=== PATIENT | male | born 1940 | race Caucasian/White ===

== ENCOUNTER 2016-09-17 18:30 | Inpatient (IN) | payer OTHER ==
[~2016-09-17] VITALS: Ht 172.7 cm; Wt 72.4 kg
[~2016-09-17 18:30] MED LIST: ACT/30 PO; ATOR-24 PO; CHOL1000 PO; CLR10 PO; GABA-112 PO; GLCSR5 PO; METO50TA16 PO; MULT-506 PO; NTRGSL/4 UT; PRLSR20 PO; SITA50TA3 PO
[2016-09-17 19:58] LABS: BUN/CREATININE RATIO 10.3 (10-20); CALCIUM 8.1 mg/dl (8.5-10.1); CREATININE 1.5 mg/dl (0.60-1.40); POTASSIUM 4.1 mmol/L (3.5-5.1)
--- NOTE | 2016-09-17 20:08 | DIAGNOSTIC IMAGING REPORT ---
CHEST 2 VIEWS ROUTINE CLINICAL HISTORY: Fever. Patient on chemotherapy. COMPARISON STUDY: 04/30/2016 FINDINGS: The heart is normal in size. There is no lobar consolidation. There is a left basilar pleural-parenchymal scarring. There is a 12 mm left midlung zone nodule versus summation. A follow-up study to include shallow PA obliques is recommended. Several thoracic compression deformities are visualized IMPRESSION: 1. Stable left basilar pleural and parenchymal scarring 2. No evidence of acute parenchymal consolidation 3. 12 mm left midlung zone nodule versus summation Electronically signed by: Avinash Irby M.D. 09/17/2016 8:07 PM Dictated Date/Time: 09/17/2016 8:05 PM
[2016-09-17] MEDS ORDERED: GLCSR5 PO (20:42)
[2016-09-17] MEDS ORDERED: GLC500 PO (20:42)
[2016-09-17] MEDS ORDERED: MAGN1TAB41 PO (20:42)
[2016-09-17] MEDS ORDERED: ZVR/400 PO (20:42)
[2016-09-17] MEDS ORDERED: LEVO-17 PO (20:42)
[2016-09-17] MEDS ORDERED: MGCS/ PO (20:42)
[2016-09-17] MEDS ORDERED: ATOR-26 PO (20:42)
[2016-09-17] MEDS ORDERED: ALLO100T PO (20:42)
[2016-09-17] MEDS ORDERED: LISI-461 PO (20:42)
[2016-09-17] MEDS ORDERED: DIPH-437 PO (20:42)
[2016-09-17] MEDS ORDERED: ACET325T95 PO (20:42)
[2016-09-17 21:04] LABS: HEMATOCRIT 26.1 % (42-52); MEAN CELL VOLUME 92.9 fL (80-100); MEAN CORPUSCULAR HEMOGLOBIN 31.3 pg (25-34); MEAN CORPUSCULAR HGB CONC 33.7 g/dl (32-36); MEAN PLATELET VOLUME 10.4 fL (7.4-10.4); PLATELET COUNT 22 K/uL (130-400); RED BLOOD COUNT 2.81 M/uL (4.7-6.1); WHITE BLOOD COUNT 1.01 K/uL (4.8-10.8)
[2016-09-17 21:10] LABS: COMPLETE YES; EOS % 8.9 %; LYMPH % 79.2 %; NEUT % 7.9 %
--- NOTE | 2016-09-17 21:52 | EMERGENCY ROOM VISIT NOTE ---
History Report prepared by Bridgette: Amleia Davies Under the Supervision of: Dr. Yaima Cardona M.D. First contact with patient: 18:53 Chief Complaint: FEVER Stated Complaint: FEVER OVER 100, ON CHEMO History of Present Illness The patient is a 75 year old male who presents to the Emergency Room with complaints of a persistent low-grade fever today. The patient's temperature was 100.2 at home. The patient was diagnosed with lymphoma in early August and [facility]. The patient was told by her doctor, Dr. Medellin, to come to the emergency room if his temperature is over 100. Currently, the patient complains of feeling generally unwell but has no focal complaints. Source of History: patient Onset: today Position: other (global) Symptom Intensity: tmax 100.2 Timing: other (persistent) Review of Systems See HPI for pertinent positives & negatives. A total of 10 systems reviewed and were otherwise negative. Past Medical & Surgical Medical Problems: (1) Benign hypertension (2) Coronary artery disease (3) Gastroesophageal reflux disease (4) Hyperlipidemia (5) Lymphoma (6) PTCA with stenting (7) Type II Diabetes Family History Patient reports no known family medical history. Social History Smoking Status: Former Smoker Marital Status: Housing Status: lives with family Occupation Status: employed Current/Historical Medications Scheduled Acetaminophen/Diphenhydramine (Tylenol Pm), 1 TAB PO HS Acyclovir (Acyclovir), 400 MG PO BID Allopurinol (Zyloprim), 100 MG PO DAILY Atorvastatin (Lipitor), 80 MG PO DAILY Cholecalciferol (Vitamin D3), 1,000 UNIT PO DAILY Gabapentin (Neurontin), 200 MG PO BID Glipizide (Glipizide Xl), 10 MG PO BID Levofloxacin (Levaquin), 250 MG PO DAILY Lisinopril (Zestril), 10 MG PO DAILY Loratadine (Claritin), 10 MG PO DAILY Maalox/Diphen/Visc. Michael/Glyc (Magic Swizzle), 1-2 TSP PO TID Magnesium Oxide (Magnesium), 400 MG PO DAILY Metformin HCl (Metformin HCl), 500 MG PO BIDM Metoprolol Tartrate (Lopressor) (Lopressor), 25 MG PO BID Multivitamin (Multivitamin), 1 TAB PO DAILY Nitroglycerin (Nitrostat), 0.4 MG UT PRN Omeprazole (Prilosec), 20 MG PO DAILY Pioglitazone Hcl (Actos), 30 MG PO DAILY Sitagliptin (Januvia), 50 MG PO DAILY Scheduled PRN Acetaminophen (Tylenol), 650 MG PO Q6 PRN for Pain or Fever Allergies Coded Allergies: No Known Allergies (Verified , 09/17/16) Physical Exam Vital Signs Date Time Temp Pulse Resp B/P Pulse Ox O2 Delivery O2 Flow Rate FiO2 09/17/16 20:11 37.2 103 18 119/78 97 Room Air 09/17/16 18:42 37.0 98 18 136/63 95 Room Air Physical Exam CONSTITUTIONAL: In no distress. Nontoxic. HEENT: No icterus, moist mucous membranes NECK: No meningismus, trachea is midline. CARDIOVASCULAR: Regular rate, normal perfusion RESPIRATORY: Unlabored breathing. Clear to auscultation. GASTROINTESTINAL: Non-tender GENITOURINARY: No flank tenderness MUSCULOSKELETAL: Full range of motion NEUROLOGIC: No acute gross focal deficits. PSYCHIATRIC: Normal affect SKIN: Normal for ethnicity. Medical Decision & Procedures ER Provider Diagnostic Interpretation: Radiology results as stated below per my review and radiologist interpretation. CHEST 2 VIEWS ROUTINE CLINICAL HISTORY: Fever. Patient on chemotherapy. COMPARISON STUDY: 04/30/2016 FINDINGS: The heart is normal in size. There is no lobar consolidation. There is a left basilar pleural-parenchymal scarring. There is a 12 mm left midlung zone nodule versus summation. A follow-up study to include shallow PA obliques is recommended. Several thoracic compression deformities are visualized IMPRESSION: 1. Stable left basilar pleural and parenchymal scarring 2. No evidence of acute parenchymal consolidation 3. 12 mm left midlung zone nodule versus summation Electronically signed by: Avinash Irby M.D. 09/17/2016 8:07 PM Dictated Date/Time: 09/17/2016 8:05 PM Laboratory Results 09/17/16 19:15 Red Blood Count 2.81, Mean Corpuscular Volume 92.9, Mean Corpuscular Hemoglobin 31.3, Mean Corpuscular Hemoglobin Concent 33.7, Mean Platelet Volume 10.4, Neutrophils (%) (Auto) 7.9, Lymphocytes (%) (Auto) 79.2, Monocytes (%) (Auto) 3.0, Eosinophils (%) (Auto) 8.9, Basophils (%) (Auto) 0.0, Neutrophils # (Auto) 0.08, Lymphocytes # (Auto) 0.80, Monocytes # (Auto) 0.03, Eosinophils # (Auto) 0.09, Basophils # (Auto) 0.00 09/17/16 19:15 Test 09/17/16 19:15 09/17/16 19:40 White Blood Count 1.01 K/uL (4.8-10.8) Red Blood Count 2.81 M/uL (4.7-6.1) Hemoglobin 8.8 g/dL (14.0-18.0) Hematocrit 26.1 % (42-52) Mean Corpuscular Volume 92.9 fL (80-100) Mean Corpuscular Hemoglobin 31.3 pg (25-34) Mean Corpuscular Hemoglobin Concent 33.7 g/dl (32-36) Platelet Count 22 K/uL (130-400) Mean Platelet Volume 10.4 fL (7.4-10.4) Neutrophils (%) (Auto) 7.9 % Lymphocytes (%) (Auto) 79.2 % Monocytes (%) (Auto) 3.0 % Eosinophils (%) (Auto) 8.9 % Basophils (%) (Auto) 0.0 % Neutrophils # (Auto) 0.08 K/uL (1.4-6.5) Lymphocytes # (Auto) 0.80 K/uL (1.2-3.4) Monocytes # (Auto) 0.03 K/uL (0.11-0.59) Eosinophils # (Auto) 0.09 K/uL (0-0.5) Basophils # (Auto) 0.00 K/uL (0-0.2) RDW Standard Deviation 45.6 fL (36.4-46.3) RDW Coefficient of Variation 13.3 % (11.5-14.5) Immature Granulocyte % (Auto) 1.0 % Immature Granulocyte # (Auto) 0.01 K/uL (0.00-0.02) Anion Gap 7.0 mmol/L (3-11) Est Creatinine Clear Calc Drug Dose 43.3 ml/min Estimated GFR () 51.7 Estimated GFR (Non- 44.6 BUN/Creatinine Ratio 10.3 (10-20) Calcium Level 8.1 mg/dl (8.5-10.1) Total Bilirubin 0.4 mg/dl (0.2-1) Direct Bilirubin 0.1 mg/dl (0-0.2) Aspartate Amino Transf (AST/SGOT) 17 U/L (15-37) Alanine Aminotransferase (ALT/SGPT) 46 U/L (12-78) Alkaline Phosphatase 64 U/L (45-117) Total Protein 6.2 gm/dl (6.4-8.2) Albumin 2.8 gm/dl (3.4-5.0) Procalcitonin 0.05 ng/mL (0-0.5) Influenza Type A Antigen Neg for Influ A (NEG) Influenza Type B Antigen Neg for Influ B (NEG) Labs reviewed by ED physician. ED Course 1899: The patient was evaluated in room C1. A complete history and physical examination was performed. 2125: I discussed the case with Dr. Vignesh Doan. 2129: Upon reexamination the patient is resting comfortably. I discussed results and treatment plan with the patient. He verbalizes agreement and understanding.Ordered Cefepime HCl 2000 mg/Dextrose 112.5 ml @ 200 mls/hr IV. 2129: I discussed the case with Dr. King [facility] Hospitalist. The patient will be evaluated for further management. Medical Decision Differential diagnosis: Etiologies such as sepsis, UTI, pneumonia, metabolic, electrolyte abnormalities , cardiac sources, intracerebral event, toxicologic, neurologic, as well as others were entertained. 75-year-old history of lymphoma on chemotherapy last dose Jorge 1 week ago presented to the emergency department with his for temperature 100.2 at home and feeling generally unwell but without focal complaints. Case discussed with Dr. Medellin oncology. Decision made to admit for cefepime 2 g IV every 8 an observation for recurrent fever and assessment of vital signs. Case discussed with [facility] hospitalist at 9:50 PM. Consults Time Called: 2119 Consulting Physician: Dr. Vignesh Stout Oncology Returned Call: 2125 I discussed the case with Dr. Vignesh Stout Oncology. Additional Consults: Time Called: 2141 Impression Primary Impression: Neutropenic fever Scribe Attestation The scribe's documentation has been prepared under my direction and personally reviewed by me in its entirety. I confirm that the note above accurately reflects all work, treatment, procedures, and medical decision making performed by me. Departure Information Dispostion Being Evaluated By Hospitalist Referrals Manoj Ospina D.O. (PCP) Patient Instructions My [facility]
[2016-09-17] MEDS ORDERED: MAGNESIUM HYDROXIDE SUSP 30 ML UDC PO PRN (22:45)
[2016-09-17] MEDS ORDERED: GLUCAGON FOR INJ 1 MG VIAL SQ PRN (22:45)
[2016-09-17] MEDS ORDERED: ACETAMINOPHEN 325 MG TAB PO PRN (22:45)
[2016-09-17] MEDS ORDERED: DEXTROSE 50% 50 ML SYR IV PRN (22:45)
[2016-09-17] MEDS ORDERED: NITROGLYCERIN 0.4 MG SL PER TAB CHARGE UT SCH (22:45)
[2016-09-17] MEDS ORDERED: GLUCOSE 10 TABS/TUBE PO PRN (22:45)
[2016-09-17] MEDS ORDERED: GLUCOSE 40% GEL 15 GM TUBE PO PRN (22:45)
[2016-09-17] MEDS ORDERED: ZOLPIDEM TARTRATE 5 MG TAB PO PRN (22:45)
[2016-09-17] MEDS ORDERED: ALUMINUM/MAGNESIUM/SIMETH (MAALOX MAX) 30 ML UDC PO PRN (22:45)
[2016-09-17] MEDS ORDERED: POLYETHYLENE (MIRALAX) 17 GM PACK PO PRN (22:45)
--- NOTE | 2016-09-17 22:46 | History and Physical ---
History & Physical Date & Time of Service: Sep 17, 2016 at 22:46 Chief Complaint: Fever Over 100, On Chemo Primary Care Physician: Manoj Ospina D.O. 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 of [facility]ESS [facility]SE , [place] [facility] last tx on 09/12/16 presented to ED -with complain of fever and chills started around 5 pm temp at home was 100.2 had 2 episode of diarrhea /loose stool no blood in stool in the ED lab work showed -severe pancytopenia WBC 1 K ; ANC 0.08 platelet count 22K hb 8.8 was afebrile will be admitted for febrile neutropenia /in chemo Past Medical/Surgical History Medical Problems: (1) Benign hypertension Status: Chronic (2) Coronary artery disease Status: Chronic (3) Gastroesophageal reflux disease Status: Chronic (4) Hyperlipidemia Status: Chronic (5) Lymphoma Status: Chronic (6) PTCA with stenting Status: Resolved (7) Type II Diabetes Status: Chronic Family History Patient reports no known family medical history. Social History Smoking Status: Former Smoker Marital Status: Housing status: lives with family Occupational Status: employed Immunizations History of Influenza Vaccine: Yes Influenza Vaccine Date: May 10, 2012 History of Tetanus Vaccine?: Unknown History of Pneumococcal: Yes Pneumococcal Date: Apr 10, 2010 History of Hepatitis B Vaccine: Unknown Multi-Drug Resistant Organisms History of MDRO: No Allergies Coded Allergies: No Known Allergies (Verified , 09/17/16) Home Medications Scheduled Acetaminophen/Diphenhydramine (Tylenol Pm), 1 TAB PO HS Acyclovir (Acyclovir), 400 MG PO BID Allopurinol (Zyloprim), 100 MG PO DAILY Atorvastatin (Lipitor), 80 MG PO DAILY Cholecalciferol (Vitamin D3), 1,000 UNIT PO DAILY Gabapentin (Neurontin), 200 MG PO BID Glipizide (Glipizide Xl), 10 MG PO BID Levofloxacin (Levaquin), 250 MG PO DAILY Lisinopril (Zestril), 10 MG PO DAILY Loratadine (Claritin), 10 MG PO DAILY Maalox/Diphen/Visc. Michael/Glyc (Magic Swizzle), 1-2 TSP PO TID Magnesium Oxide (Magnesium), 400 MG PO DAILY Metformin HCl (Metformin HCl), 500 MG PO BIDM Metoprolol Tartrate (Lopressor) (Lopressor), 25 MG PO BID Multivitamin (Multivitamin), 1 TAB PO DAILY Nitroglycerin (Nitrostat), 0.4 MG UT PRN Omeprazole (Prilosec), 20 MG PO DAILY Pioglitazone Hcl (Actos), 30 MG PO DAILY Sitagliptin (Januvia), 50 MG PO DAILY Scheduled PRN Acetaminophen (Tylenol), 650 MG PO Q6 PRN for Pain or Fever Review of Systems Constitutional: + chills, + fatigue, + sweats, + weakness, + weight loss ENT: + hearing loss (left ear ) Respiratory: No cough, No dyspnea at rest, No dyspnea on exertion, No hemoptysis, No problem reported, No shortness of breath, No sputum, No wheezing Abdomen: + diarrhea Genitourinary - Male: No dysuria, No hematuria, No impotence, No lesions, No penile discharge, No problem reported, No urinary frequency, No urinary hesitancy, No urinary incontinence, No urinary retention, No urinary urgency Neurologic: + weakness Endocrine: + fatigue Physical Exam Vital Signs Date Time Temp Pulse Resp B/P Pulse Ox O2 Delivery O2 Flow Rate FiO2 09/17/16 22:16 91 18 131/62 97 Room Air 09/17/16 20:11 37.2 103 18 119/78 97 Room Air 09/17/16 18:42 37.0 98 18 136/63 95 Room Air General Appearance: no apparent distress Head: normocephalic, atraumatic Eyes: normal inspection ENT: + pertinent finding (left eye ptosis /hearing loss of left ear /whitish sore spots on the internal mucosa surface of lower lip ) Neck: supple, no adenopathy, thyroid normal, no JVD, no carotid bruits, trachea midline Respiratory/Chest: chest non-tender, lungs clear, normal breath sounds, no respiratory distress Cardiovascular: regular rate, rhythm, no edema, no gallop, no JVD, no murmur, normal peripheral pulses Abdomen/GI: normal bowel sounds, non tender, soft Extremities/Musculoskelatal: normal capillary refill, no pedal edema, normal range of motion Neurologic/Psych: no motor/sensory deficits, alert, normal mood/affect Skin: normal color, warm/dry, no rash Lymphatic: no adenopathy Diagnostics Laboratory Results Results Past 24 Hours Test 09/17/16 19:15 09/17/16 19:40 Range/Units White Blood Count 1.01 4.8-10.8 K/uL Red Blood Count 2.81 4.7-6.1 M/uL Hemoglobin 8.8 14.0-18.0 g/dL Hematocrit 26.1 42-52 % Mean Corpuscular Volume 92.9 80-100 fL Mean Corpuscular Hemoglobin 31.3 25-34 pg Mean Corpuscular Hemoglobin Concent 33.7 32-36 g/dl Platelet Count 22 130-400 K/uL Mean Platelet Volume 10.4 7.4-10.4 fL Neutrophils (%) (Auto) 7.9 % Lymphocytes (%) (Auto) 79.2 % Monocytes (%) (Auto) 3.0 % Eosinophils (%) (Auto) 8.9 % Basophils (%) (Auto) 0.0 % Neutrophils # (Auto) 0.08 1.4-6.5 K/uL Lymphocytes # (Auto) 0.80 1.2-3.4 K/uL Monocytes # (Auto) 0.03 0.11-0.59 K/uL Eosinophils # (Auto) 0.09 0-0.5 K/uL Basophils # (Auto) 0.00 0-0.2 K/uL RDW Standard Deviation 45.6 36.4-46.3 fL RDW Coefficient of Variation 13.3 11.5-14.5 % Immature Granulocyte % (Auto) 1.0 % Immature Granulocyte # (Auto) 0.01 0.00-0.02 K/uL Sodium Level 144 136-145 mmol/L Potassium Level 4.1 3.5-5.1 mmol/L Chloride Level 108 98-107 mmol/L Carbon Dioxide Level 29 21-32 mmol/L Anion Gap 7.0 3-11 mmol/L Blood Urea Nitrogen 16 7-18 mg/dl Creatinine 1.50 0.60-1.40 mg/dl Est Creatinine Clear Calc Drug Dose 43.3 ml/min Estimated GFR () 51.7 Estimated GFR (Non- 44.6 BUN/Creatinine Ratio 10.3 10-20 Random Glucose 198 70-99 mg/dl Calcium Level 8.1 8.5-10.1 mg/dl Total Bilirubin 0.4 0.2-1 mg/dl Direct Bilirubin 0.1 0-0.2 mg/dl Aspartate Amino Transf (AST/SGOT) 17 15-37 U/L Alanine Aminotransferase (ALT/SGPT) 46 12-78 U/L Alkaline Phosphatase 64 45-117 U/L Total Protein 6.2 6.4-8.2 gm/dl Albumin 2.8 3.4-5.0 gm/dl Procalcitonin 0.05 0-0.5 ng/mL Influenza Type A Antigen Neg for Influ A NEG Influenza Type B Antigen Neg for Influ B NEG Microbiology Results 09/17/16 Blood Culture, Received Pending 09/17/16 Blood Culture, Received Pending Diagnostic Radiology CHEST 2 VIEWS ROUTINE CLINICAL HISTORY: Fever. Patient on chemotherapy. COMPARISON STUDY: 04/30/2016 FINDINGS: The heart is normal in size. There is no lobar consolidation. There is a left basilar pleural-parenchymal scarring. There is a 12 mm left midlung zone nodule versus summation. A follow-up study to include shallow PA obliques is recommended. Several thoracic compression deformities are visualized IMPRESSION: 1. Stable left basilar pleural and parenchymal scarring 2. No evidence of acute parenchymal consolidation 3. 12 mm left midlung zone nodule versus summation Impression Assessment and Plan NEUTROPENIC FEVER: no obvious focus noted significant immunocompromised status -recent chemo /lymphoma /severe neutropenia Blood culture ordered UA -send to urine culture if indicated Cxray no obvious infiltrate noted Left upper lobe possible nodule vs summation -repeat CXray in AM sputum for culture and gram statin pt reports of loose stool this evening stool for C diff ordered Flu swab /MRSA screening swab ordered empiric Abx with Iv Cefepime 2 gm q 12 hrs RECENT DX OF LYMPHOMA ON CHEMO Dx with DLBCL ( diffuse large B cell lymphoma ) of [facility]ESS N[facility]SE approx 3 months ago pt presented with weakness /dropping of left eye lid , hearing loss on left ear , had B symptoms of fatigue , weakness, night sweats FNA of enlarging mass on left skull base on 08/25/16 -pathology shows malignant DLBCL was admitted form 09/05/16 to 09/12/16 at [facility] underwent Chemo tx with Rituxan on 09/05/16 , high dose MTX to penetrate the ACCESS NURSE Cytarabine /Methylprednisone started on 09/06/16 completed on 09/12/16 pt been followed with Dr Medellin [facility] Lab work on 09/17/16 shows severe Neutropenia /thrombocytopenia /anemia pt was started on prophylactic Abx Levaquin 250 mg Po Daily started on Neupogen 300 mcg daily till ANC normal Heme Onc Dr Medellin consulted ORAL SORE : developed painful oral sore after chemo cont magic mouth wash oral nystatin NEUTROPENIA due to Lymphoma , recent chemo Neutropenic precaution has been given Neupogen CBC with diff in AM peripheral smear for pathology review Heme onc consult requested THROMBOCYTOPENIA : due to recent chemo tx follow CBC closely no evidence of bleeding transfuse for platelet < 20 K avoid antiplatelets , anticoagulants Heme onc consult requested ANEMIA : due to recent chemo Hb 8.8 ordered to type and cross 2 units of irradiated PRBC tx for hb < 8 or symptom NARENDRA ON CKD STAGE 3 : baseline cr 1.2 ; Cr elevated to 1.5 due to dehydration , recent chemo tx , fever IV fluid NSS @ 100 ml /hr ordered follow PRP avoid Nephrotoxins -no NSAID's , avoid diuretics /ACEI kept on hold , contrast studies when able LOW MG /LOW PHOS : due to recent chemo tx replaced follow lytes TYPE 2 DM : hold oral hypoglycemic agents -Metformin , Actos , glipizide , Januvia Insulin SSI Diabetic diet HB A1c ordered in AM lab FULL CODE -code status D/w pt does not have a living will wants resuscitative attempts to be done including CPR , mechanical ventilation if there is a chance for reasonable recovery DVT PROPHYLAXIS : moderate to high risk due to malignancy pharmacological anticoagulation contraindicated due to severe thrombocytopenia SCD and teds pt will be encouraged to ambulate DISPOSITION : Cancer patient under chemo tx PT /OT EVAL prior to discharge home social service consulted to assess discharge needs Medicine follow up with Dr Ospina VTE Prophylaxis VTE Risk Assessment Done? Y/N: Yes Risk Level: High Note In my clinical judgment this beneficiary meets acute admission criteria, established by [facility], that includes being hospitalized through two midnights. Additional Copies To Mendel Medellin MD Sulman,Manoj Phan D.O.
[2016-09-17] MEDS ORDERED: MAGIC SWIZZLE PO PRN (23:30)
[2016-09-17 23:53] LABS: MAGNESIUM 1.4 mg/dl (1.8-2.4); PHOSPHORUS 1.7 mg/dl (2.5-4.9)
[2016-09-18] VITALS (19 sets, daily range): BP systolic 114–157; BP diastolic 66–84; PULSE 56–93; TEMP 36.4–37.6; O2SAT 90–99; BMI 26.1
[2016-09-18] MEDS ORDERED: POTASSIUM PHOS 3 MMOL/1 ML INFUSION IV STA (01:13)
[2016-09-18] MEDS ORDERED: MAGNESIUM SULFATE 1GM / D5W 1 GM in PREMIXED IN D5W 100 ML IV STA (01:22)
[2016-09-18 01:24] LABS: URINE APPEARANCE CLEAR (CLEAR); URINE BILIRUBIN NEG (NEG); URINE COLOR YELLOW; URINE NITRITE NEG (NEG); URINE PH 8.5 (4.5-7.5); URINE SPECIFIC GRAVITY 1.006 (1.000-1.030); UROBILINOGEN NEG (NEG); ZZUR CULT IF INDIC CLEAN CATCH NO
[2016-09-18 01:28] LABS: MANUAL MICROSCOPIC REQUIRED? NO; REVIEW REQ? NO
[2016-09-18] MEDS ORDERED: POTASSIUM PHOSPHATE INJ 9 MMOL in SODIUM CHLORIDE 0.9% 250ML 250 ML IV SCH (01:30)
[2016-09-18] MEDS: SODIUM CHLORIDE 0.9% 1000ML 1,000 ML IV SCH ×3 (01:58→20:44)
[2016-09-18] MEDS: ACETAMINOPHEN 325 MG TAB PO PRN (02:00)
[2016-09-18] MEDS ORDERED: LIDOCAINE HCL 2% VISCOUS SOLN 60 ML, DiphenhydrAMINE HCL SYRUP 150 MG, ALUMINUM/MAGNESI... MT PRN ×4 (02:00)
[2016-09-18] MEDS: POT PHOSPHATE MONOBASIC W/ SOD TAB PO SCH ×5 (02:00→20:49)
[2016-09-18 06:51] LABS: PROTHROMBIN TIME (PATIENT) 10.4 SECONDS (9.0-12.0)
[2016-09-18 07:17] LABS: BUN/CREATININE RATIO 11.9 (10-20); CALCIUM 7.8 mg/dl (8.5-10.1); CREATININE 1.3 mg/dl (0.60-1.40); MAGNESIUM 1.6 mg/dl (1.8-2.4); PHOSPHORUS 2.1 mg/dl (2.5-4.9); POTASSIUM 3.9 mmol/L (3.5-5.1)
[2016-09-18 07:24] LABS: HEMATOCRIT 22.2 % (42-52); MEAN CELL VOLUME 91.7 fL (80-100); MEAN CORPUSCULAR HGB CONC 33.8 g/dl (32-36); MEAN PLATELET VOLUME 11.2 fL (7.4-10.4); PLATELET COUNT 18 K/uL (130-400); RED BLOOD COUNT 2.42 M/uL (4.7-6.1); WHITE BLOOD COUNT 0.97 K/uL (4.8-10.8)
[2016-09-18 07:25] LABS: DOHLE BODIES 2+; PLT ESTIMATE SIGNIFIC DECREASED
[2016-09-18 07:26] LABS: BASO ABS # 0.01 K/uL (0-0.2); BASOPHIL % 0.9 % (0-2); COMPLETE YES; EOSINOPHIL % 4.3 %; LYMPH ABS # 0.83 K/uL (1.2-3.4); LYMPHOCYTE % 85.1 %
--- NOTE | 2016-09-18 07:41 | DIAGNOSTIC IMAGING REPORT ---
CHEST ONE VIEW PORTABLE CLINICAL HISTORY: SOB /FEVER dyspnea COMPARISON STUDY: 09/27/2016 FINDINGS: Unchanging nodular density peripheral aspect left midlung. Unchanging pleural reactive change left base. Right lung is considered clear. No evidence for cardiac enlargement. IMPRESSION: Unchanged chest compared to the prior study 09/17/2016. No new or interval findings. Electronically signed by: Per Wong M.D. 09/18/2016 7:40 AM Dictated Date/Time: 09/18/2016 7:37 AM
[2016-09-18] MEDS ORDERED: CEFEPIME IV 2,000 MG in DEXTROSE 5% 100ML 100 ML IV SCH (08:00)
[2016-09-18] MEDS ORDERED: MAGNESIUM OXIDE 400 MG TAB PO SCH (08:00)
[2016-09-18] MEDS ORDERED: ATORVASTATIN 40 MG TAB PO SCH (08:00)
[2016-09-18] MEDS: NYSTATIN SUSP 500,000 U/5 ML UDC PO SCH ×4 (09:00→20:46)
[2016-09-18] MEDS: PANTOprazole SOD 40 MG TAB PO SCH (09:01)
[2016-09-18] MEDS: CHOLECALCIFEROL 1000 INTER.UNIT TAB PO SCH (09:01)
[2016-09-18] MEDS: MULTIVITAMIN TAB PO SCH (09:02)
[2016-09-18] MEDS: MAGNESIUM OXIDE 400 MG TAB PO SCH ×2 (09:02→20:46)
[2016-09-18] MEDS: METOPROLOL TARTRATE 25 MG TAB PO SCH ×2 (09:03→20:46)
[2016-09-18] MEDS: ACYCLOVIR 400 MG TAB PO SCH ×2 (09:03→20:45)
[2016-09-18] MEDS: GABAPENTIN 100 MG CAP PO SCH ×2 (09:04→20:47)
[2016-09-18] MEDS: ALLOPURINOL 100 MG TAB PO SCH (09:04)
[2016-09-18] MEDS: LORATADINE 10 MG TAB PO SCH (09:05)
[2016-09-18] MEDS: INSULIN HUMAN REGULAR SC SCH ×4 (09:21→20:44)
[2016-09-18 09:52] LABS: ESTIMATED AVERAGE GLUCOSE 214 mg/dl; HA1C FLAG Normal (Normal)
[2016-09-18] MEDS ORDERED: FLUCONAZOLE 100 MG TAB PO ONE (09:55)
[2016-09-18] MEDS ORDERED: FILGRASTIM 300 MCG/ML 1 ML VIAL SQ ONE (09:55)
[2016-09-18] MEDS: CEFEPIME IV 2,000 MG in DEXTROSE 5% 100ML 100 ML IV SCH ×2 (11:39→20:52)
--- NOTE | 2016-09-18 14:39 | Progress Note ---
Internal Med Progress Note Date of Service: Sep 18, 2016. Provider Documentation: SUBJECTIVE: The patient was sen and examined Generally weak and lethargic Denies any other symptoms OBJECTIVE: Vital Signs-as noted below Exam: General-No distress Eyes-normal ENT-normal Neck-Supple Lungs-Clear to ausucltate bilaterally Heart-Regular,no murmur appreciated Abdomen-Benign,no masses,bowel sound present Extremities-N edema Neuro-AAOx3 Generally weak and lethargic Lab data as noted below. 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 approx 3 months ago FNA of enlarging mass on left skull base on 08/25/16 -pathology shows malignant DLBCL Was admitted form 09/05/16 to 09/12/16 at [facility] Underwent Chemo tx with Rituxan on 09/05/16 , high dose MTX to penetrate the DECORATION CHECKER Cytarabine /Methylprednisone started on 09/06/16 completed on 09/12/16 Lab work on 09/17/16 shows severe Neutropenia /thrombocytopenia /anemia Pt was started on prophylactic Abx Levaquin 250 mg Po Daily Started on Neupogen 300 mcg daily till ANC normal Heme Onc Dr Medellin consulted ORAL Thrush : -developed painful oral sore after chemo -cont magic mouth wash -oral nystatin and Diflucan 200mg daily PANCYTOPENIA::: NEUTROPENIA As mentioned above Neupogen ordered Monitor WCC Neutropenic precaution THROMBOCYTOPENIA : 22 on Admission Went down to 18 this morning will give 1 unit of platelet paresis ANEMIA : Due to recent chemo Hb 8.8 Ordered to type and cross 2 units of irradiated PRBC Dropped to 7.4 will give 1 unit PRBC NARENDRA ON CKD STAGE 3 : baseline cr 1.2 ; Cr elevated to 1.5 due to dehydration , recent chemo tx , fever IV fluid NSS @ 100 ml /hr ordered avoid Nephrotoxins -no NSAID's , avoid diuretics /ACEI kept on hold , contrast studies when able Electrolytes Abnormalities Will supplement Recheck TYPE 2 DM : hold oral hypoglycemic agents -Metformin , Actos , glipizide , Januvia Insulin SSI Diabetic diet HB A1c ordered in AM lab FULL CODE -code status D/w pt does not have a living will wants resuscitative attempts to be done including CPR , mechanical ventilation if there is a chance for reasonable recovery DVT PROPHYLAXIS : moderate to high risk due to malignancy pharmacological anticoagulation contraindicated due to severe thrombocytopenia SCD and teds pt will be encouraged to ambulate DISPOSITION : Cancer patient under chemo tx PT /OT EVAL prior to discharge home social service consulted to assess discharge needs Medicine follow up with Dr Ospina Vital Signs: Date Time Temp Pulse Resp B/P Pulse Ox O2 Delivery O2 Flow Rate FiO2 09/18/16 14:19 36.5 75 18 144/78 98 09/18/16 13:45 36.5 75 18 152/79 98 09/18/16 13:20 36.6 76 16 152/80 09/18/16 12:50 36.4 76 14 152/84 09/18/16 12:35 36.5 71 18 150/83 99 09/18/16 11:27 36.9 74 16 129/72 97 09/18/16 10:10 36.7 79 18 120/73 96 09/18/16 09:40 36.8 75 18 125/80 96 09/18/16 09:25 37.4 80 18 130/70 95 09/18/16 09:10 37.2 80 18 134/73 96 09/18/16 08:48 37.4 81 18 123/71 94 09/18/16 07:32 37.0 78 16 118/70 93 Room Air 09/18/16 03:53 37.2 93 18 135/73 94 Room Air 09/18/16 00:31 37.1 86 16 127/66 96 Room Air 09/18/16 00:10 115 18 152/97 95 09/17/16 22:16 91 18 131/62 97 Room Air 09/17/16 20:11 37.2 103 18 119/78 97 Room Air 09/17/16 18:42 37.0 98 18 136/63 95 Room Air Lab Results: Results Past 24 Hours Test 09/17/16 19:15 09/17/16 19:40 09/18/16 00:05 09/18/16 06:30 Range/Units White Blood Count 1.01 0.97 4.8-10.8 K/uL Red Blood Count 2.81 2.42 4.7-6.1 M/uL Hemoglobin 8.8 7.5 14.0-18.0 g/dL Hematocrit 26.1 22.2 42-52 % Mean Corpuscular Volume 92.9 91.7 80-100 fL Mean Corpuscular Hemoglobin 31.3 31.0 25-34 pg Mean Corpuscular Hemoglobin Concent 33.7 33.8 32-36 g/dl Platelet Count 22 18 130-400 K/uL Mean Platelet Volume 10.4 11.2 7.4-10.4 fL Neutrophils (%) (Auto) 7.9 % Lymphocytes (%) (Auto) 79.2 % Monocytes (%) (Auto) 3.0 % Eosinophils (%) (Auto) 8.9 % Basophils (%) (Auto) 0.0 % Neutrophils # (Auto) 0.08 1.4-6.5 K/uL Lymphocytes # (Auto) 0.80 1.2-3.4 K/uL Monocytes # (Auto) 0.03 0.11-0.59 K/uL Eosinophils # (Auto) 0.09 0-0.5 K/uL Basophils # (Auto) 0.00 0-0.2 K/uL RDW Standard Deviation 45.6 44.8 36.4-46.3 fL RDW Coefficient of Variation 13.3 13.3 11.5-14.5 % Immature Granulocyte % (Auto) 1.0 % Immature Granulocyte # (Auto) 0.01 0.00-0.02 K/uL Sodium Level 144 146 136-145 mmol/L Potassium Level 4.1 3.9 3.5-5.1 mmol/L Chloride Level 108 110 98-107 mmol/L Carbon Dioxide Level 29 28 21-32 mmol/L Anion Gap 7.0 8.0 3-11 mmol/L Blood Urea Nitrogen 16 16 7-18 mg/dl Creatinine 1.50 1.30 0.60-1.40 mg/dl Est Creatinine Clear Calc Drug Dose 43.3 46.8 ml/min Estimated GFR () 51.7 61.4 Estimated GFR (Non- 44.6 53.0 BUN/Creatinine Ratio 10.3 11.9 10-20 Random Glucose 198 182 70-99 mg/dl Calcium Level 8.1 7.8 8.5-10.1 mg/dl Phosphorus Level 1.7 2.1 2.5-4.9 mg/dl Magnesium Level 1.4 1.6 1.8-2.4 mg/dl Total Bilirubin 0.4 0.2-1 mg/dl Direct Bilirubin 0.1 0-0.2 mg/dl Aspartate Amino Transf (AST/SGOT) 17 15-37 U/L Alanine Aminotransferase (ALT/SGPT) 46 12-78 U/L Alkaline Phosphatase 64 45-117 U/L Total Protein 6.2 6.4-8.2 gm/dl Albumin 2.8 3.4-5.0 gm/dl Procalcitonin 0.05 0-0.5 ng/mL Influenza Type A Antigen Neg for Influ A NEG Influenza Type B Antigen Neg for Influ B NEG Urine Color YELLOW Urine Appearance CLEAR CLEAR Urine pH 8.5 4.5-7.5 Urine Specific [place] 1.006 1.000-1.030 Urine Protein NEG NEG Urine Glucose (UA) NEG NEG Urine Ketones NEG NEG Urine Occult Blood NEG NEG Urine Nitrite NEG NEG Urine Bilirubin NEG NEG Urine Urobilinogen NEG NEG Urine Leukocyte Esterase NEG NEG Neutrophils % (Manual) 7.0 % Lymphocytes % (Manual) 85.1 % Monocytes % (Manual) 0.9 % Eosinophils % (Manual) 4.3 % Basophils % (Manual) 0.9 0-2 % Promyelocytes % 0.9 % Blast Cells % 0.9 % Neutrophils # (Manual) 0.07 1.4-6.5 K/uL Total Absolute Neutrophils 0.07 1.4-6.5 K/uL Lymphocytes # (Manual) 0.83 1.2-3.4 K/uL Total Absolute Lymphocytes 0.83 1.2-3.4 K/uL Monocytes # (Manual) 0.01 0.11-0.59 K/uL Eosinophils # (Manual) 0.04 0-0.5 K/uL Basophils # (Manual) 0.01 0-0.2 K/uL Promyelocytes # 0.01 0-0 K/uL Blast Cells # 0.01 0-0 K/uL Dohle Bodies 2+ Platelet Estimate SIGNIFIC DECREASED Prothrombin Time 10.4 9.0-12.0 SECONDS Prothromb Time International Ratio 1.0 0.9-1.1 Estimated Average Glucose 214 mg/dl Hemoglobin A1c 9.1 4.5-5.6 % Lactic Acid Level 1.7 0.4-2.0 mmol/L Test 09/18/16 07:47 09/18/16 11:31 Range/Units Bedside Glucose 181 133 70-99 mg/dl Microbiology Results 09/17/16 Blood Culture, Received Pending 09/17/16 Blood Culture, Received Pending 09/18/16 MRSA DNA Surveillance Screen - Final, Complete Specimen Negative for MRSA by DNA Probe
--- NOTE | 2016-09-18 18:54 | Medical Consult ---
Consultation Date of Consultation: Sep 18, 2016. Attending Physician: Nicole Ruffin M.D. 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 He had FNA of left skull base enlarging mass which showed DLBCL germinal center subtype. PET-CT scan showed large FDG avid mass left skull base with invasion of the adjacent soft tissue and intracranial compasrtments and a closely adjacent left level 2 lymph node and FDG avid right hilar lymph nodes concerning for neoplasm. He was admitted to [facility] from 09/05/16 to 09/12/16 and bone marrow aspirate and biopsy was negative for lymphoma. He received rituxan and high dose methotrexate, cytarabine with methylprednisolone - MA-R portion of hyperCVAD/MA-R regimen. He has pancytopenia. He received platelet transfusion on 09/16/16 and has been receiving neupogen injections daily. He was on levaquin 250mg daily for prophylaxis. He has renal insufficiency. Patient received magnesium yesterday for hypomagnesemia. He complained of chills and felt subjective fevers at home. His checked his temperature and it and was 100.2. He came to ER for evaluation. He had cultures checked in ER. He was started on cefepime 2g Q12. Today his platelets are decreased and he also had increased fatigue with worsening anemia. I spoke to Dr Ruffin this morning to transfuse 1 unit irradiated PRBC and 1 unit irradiated platelet as well as give daily neupogen 300mcg daily until his ANC>1000 for 2 consecutive days for treatment of neutropenia He feels improved now. No headache. No bleeding or bruising. Past Medical/Surgical History PMH: CAD, Diabetes, hyperlipidemia, PE, MANUFACTURING OPERATOR lymphoma psh: ivc FILTER CARDIAC CATH, partial colectomy, Medical Problems: (1) Diplopia Status: Acute (2) Headache Status: Acute (3) Neutropenic fever Status: Acute Family History Patient reports no known family medical history. No known FH of blood disorders or cancer Social History Smoking Status: Former Smoker Alcohol Use: none Drug Use: none Marital Status: Housing Status: lives with family Allergies Coded Allergies: No Known Allergies (Verified , 09/17/16) Current Inpatient Medications Current Inpatient Medications Medications (Trade) Dose Ordered Sig/Eulalia Route Start Time Stop Time Status Last Admin Dose Admin Sodium Chloride (Nss 1000ml) 1,000 ml @ 100 mls/hr Q10H IV 09/18/16 01:00 10/18/16 00:59 09/18/16 11:40 100 MLS/HR Acetaminophen (Tylenol Tab) 650 mg Q4H PRN PO 09/17/16 22:45 10/17/16 22:44 09/18/16 02:00 650 MG Al Hydrox/Mg Hydrox/Simethicone (Maalox Max Susp) 15 ml Q4H PRN PO 09/17/16 22:45 10/17/16 22:44 Magnesium Hydroxide (Milk Of Magnesia Susp) 30 ml Q6H PRN PO 09/17/16 22:45 10/17/16 22:44 Polyethylene (Miralax Powder Packet) 17 gm DAILY PRN PO 09/17/16 22:45 10/17/16 22:44 Zolpidem Tartrate (Ambien Tab) 5 mg HSZ PRN PO 09/17/16 22:45 10/17/16 22:44 Ondansetron HCl (Zofran Inj) 4 mg Q6H PRN IV 09/17/16 22:45 10/17/16 22:44 Insulin Human Regular (novoLIN-R) SLIDING SCALE IF C... ACHS SC 09/18/16 06:30 10/18/16 06:59 09/18/16 18:21 3 UNITS Glucose (Glucose 40% Gel) 15-30 GRAMS 15 GRAMS... UD PRN PO 09/17/16 22:45 10/17/16 22:44 Glucose (Glucose Chew Tab) 4-8 Tablets 4 Tabl... UD PRN PO 09/17/16 22:45 10/17/16 22:44 Dextrose (Dextrose 50% 50ML Syringe) 25-50ML OF 50% DW IV FOR... UD PRN IV 09/17/16 22:45 10/17/16 22:44 Glucagon 1 mg 1 mg UD PRN SQ 09/17/16 22:45 10/17/16 22:44 Cefepime HCl/ Dextrose (Maxipime IV/D5 100ml) 112.5 ml @ 200 mls/hr Q12H IV 09/18/16 11:00 09/20/16 10:59 09/18/16 11:39 200 MLS/HR Acyclovir (Zovirax Tab) 400 mg BID PO 09/18/16 08:00 10/18/16 08:59 09/18/16 09:03 400 MG Allopurinol (Zyloprim Tab) 100 mg DAILY PO 09/18/16 08:00 10/18/16 08:59 09/18/16 09:04 100 MG Atorvastatin Calcium (Lipitor Tab) 80 mg DAILY PO 09/18/16 08:00 10/18/16 08:59 09/18/16 09:05 80 MG Cholecalciferol (Vitamin D Tab) 1,000 inter.unit DAILY PO 09/18/16 08:00 10/18/16 08:59 09/18/16 09:01 1,000 INTER.UNIT Gabapentin (Neurontin Cap) 200 mg BID PO 09/18/16 08:00 10/18/16 08:59 09/18/16 09:04 200 MG Loratadine (Claritin Tab) 10 mg DAILY PO 09/18/16 08:00 10/18/16 08:59 09/18/16 09:05 10 MG Metoprolol Tartrate (Lopressor Tab) 25 mg BID PO 09/18/16 08:00 10/18/16 08:59 09/18/16 09:03 25 MG Multivitamins (Multivitamin Tab) 1 tab DAILY PO 09/18/16 08:00 10/18/16 08:59 09/18/16 09:02 1 TAB Nitroglycerin (Nitrostat Tab) 0.4 mg PRN UT 09/17/16 22:45 10/17/16 22:44 Acetaminophen (Tylenol Tab) 1 mg HS PO 09/18/16 21:00 10/18/16 20:59 Pantoprazole Sodium (Protonix Tab) 40 mg DAILY PO 09/18/16 08:00 10/18/16 08:59 09/18/16 09:01 40 MG Nystatin (Mycostatin Susp) 5 ml QID PO 09/18/16 08:00 10/18/16 08:59 09/18/16 18:17 5 ML Potassium/ Phosphorus/Sodium (Phospha 250 Neutral 155-852-130 Mg) 2 tab QID PO 09/18/16 01:15 10/18/16 01:14 09/18/16 18:17 2 TAB Magnesium Oxide 400 mg BID PO 09/18/16 08:00 10/18/16 07:59 09/18/16 09:02 400 MG Lidocaine HCl/ Diphenhydramine HCl/Al Hydroxide/ Mg Hydroxide/ Glycerin/Barcode (VISCOUS LIDOCAINE 2% Soln/ Benadryl Syrup/ Maalox Susp/ Glycerin Anhydrous Soln) Q6H PRN MT 09/18/16 02:00 10/18/16 01:59 Diphenhydramine HCl (Benadryl Cap) 25 mg HS PO 09/18/16 21:00 10/18/16 20:59 Filgrastim (Neupogen Sq) 300 mcg DAILY SQ 09/19/16 08:00 10/19/16 07:59 Fluconazole (Diflucan Tab) 200 mg QAM PO 09/19/16 08:00 10/18/16 07:59 Review of Systems Constitutional: + chills, + fatigue, + fever (at home 100.2), + weakness ( generalized) ENT: + hearing loss (on left), + problem reported (soreness on lower inner lip improving), No nasal symptoms, No sore throat, No unusual epistaxis Respiratory: No cough, No dyspnea at rest, No dyspnea on exertion, No shortness of breath, No sputum, No wheezing Cardiovascular: No chest pain, No edema, No orthopnea Abdomen: No GI bleeding, No constipation, No diarrhea, No nausea, No pain Musculoskeletal: No calf pain, No joint pain, No muscle pain, No swelling Genitourinary - Male: No dysuria, No hematuria, No urinary frequency, No urinary incontinence, No urinary retention Neurologic: No numbness/tingling Psychiatric: + insomnia Endocrine: + fatigue Integumentary: No itch, No rash Physical Exam Date Time Temp Pulse Resp B/P Pulse Ox O2 Delivery O2 Flow Rate FiO2 09/18/16 15:14 36.6 75 20 157/80 97 Room Air 09/18/16 14:19 36.5 75 18 144/78 98 09/18/16 13:45 36.5 75 18 152/79 98 09/18/16 13:20 36.6 76 16 152/80 09/18/16 12:50 36.4 76 14 152/84 09/18/16 12:35 36.5 71 18 150/83 99 09/18/16 11:27 36.9 74 16 129/72 97 09/18/16 10:10 36.7 79 18 120/73 96 09/18/16 09:40 36.8 75 18 125/80 96 09/18/16 09:25 37.4 80 18 130/70 95 09/18/16 09:10 37.2 80 18 134/73 96 09/18/16 08:48 37.4 81 18 123/71 94 09/18/16 08:00 93 Room Air 09/18/16 07:32 37.0 78 16 118/70 93 Room Air 09/18/16 03:53 37.2 93 18 135/73 94 Room Air 09/18/16 00:31 37.1 86 16 127/66 96 Room Air 09/18/16 00:10 115 18 152/97 95 09/17/16 22:16 91 18 131/62 97 Room Air 09/17/16 20:11 37.2 103 18 119/78 97 Room Air 09/17/16 18:42 37.0 98 18 136/63 95 Room Air General Appearance: WD/WN, no apparent distress Head: normocephalic, atraumatic Eyes: sclerae normal, + pertinent finding (left ptosis and left hearing loss) ENT: pharynx normal, + pertinent finding (left hearing loss) Neck: supple, no adenopathy, no JVD Respiratory/Chest: chest non-tender, lungs clear, normal breath sounds, no respiratory distress, no accessory muscle use Cardiovascular: regular rate, rhythm, no edema, no gallop, no JVD, no murmur Abdomen/GI: normal bowel sounds, non tender, soft, no organomegaly Extremities/Musculoskelatal: no calf tenderness, no pedal edema Neurologic/Psych: alert, oriented x 3 Skin: warm/dry, no rash Lymphatic: no adenopathy Laboratory Results Last 24 Hours Test 09/17/16 19:15 09/17/16 19:40 09/18/16 00:05 09/18/16 06:30 White Blood Count 1.01 K/uL 0.97 K/uL Red Blood Count 2.81 M/uL 2.42 M/uL Hemoglobin 8.8 g/dL 7.5 g/dL Hematocrit 26.1 % 22.2 % Mean Corpuscular Volume 92.9 fL 91.7 fL Mean Corpuscular Hemoglobin 31.3 pg 31.0 pg Mean Corpuscular Hemoglobin Concent 33.7 g/dl 33.8 g/dl Platelet Count 22 K/uL 18 K/uL Mean Platelet Volume 10.4 fL 11.2 fL Neutrophils (%) (Auto) 7.9 % Lymphocytes (%) (Auto) 79.2 % Monocytes (%) (Auto) 3.0 % Eosinophils (%) (Auto) 8.9 % Basophils (%) (Auto) 0.0 % Neutrophils # (Auto) 0.08 K/uL Lymphocytes # (Auto) 0.80 K/uL Monocytes # (Auto) 0.03 K/uL Eosinophils # (Auto) 0.09 K/uL Basophils # (Auto) 0.00 K/uL RDW Standard Deviation 45.6 fL 44.8 fL RDW Coefficient of Variation 13.3 % 13.3 % Immature Granulocyte % (Auto) 1.0 % Immature Granulocyte # (Auto) 0.01 K/uL Sodium Level 144 mmol/L 146 mmol/L Potassium Level 4.1 mmol/L 3.9 mmol/L Chloride Level 108 mmol/L 110 mmol/L Carbon Dioxide Level 29 mmol/L 28 mmol/L Anion Gap 7.0 mmol/L 8.0 mmol/L Blood Urea Nitrogen 16 mg/dl 16 mg/dl Creatinine 1.50 mg/dl 1.30 mg/dl Est Creatinine Clear Calc Drug Dose 43.3 ml/min 46.8 ml/min Estimated GFR () 51.7 61.4 Estimated GFR (Non- 44.6 53.0 BUN/Creatinine Ratio 10.3 11.9 Random Glucose 198 mg/dl 182 mg/dl Calcium Level 8.1 mg/dl 7.8 mg/dl Phosphorus Level 1.7 mg/dl 2.1 mg/dl Magnesium Level 1.4 mg/dl 1.6 mg/dl Total Bilirubin 0.4 mg/dl Direct Bilirubin 0.1 mg/dl Aspartate Amino Transf (AST/SGOT) 17 U/L Alanine Aminotransferase (ALT/SGPT) 46 U/L Alkaline Phosphatase 64 U/L Total Protein 6.2 gm/dl Albumin 2.8 gm/dl Procalcitonin 0.05 ng/mL Influenza Type A Antigen Neg for Influ A Influenza Type B Antigen Neg for Influ B Urine Color YELLOW Urine Appearance CLEAR Urine pH 8.5 Urine Specific [place] 1.006 Urine Protein NEG Urine Glucose (UA) NEG Urine Ketones NEG Urine Occult Blood NEG Urine Nitrite NEG Urine Bilirubin NEG Urine Urobilinogen NEG Urine Leukocyte Esterase NEG Neutrophils % (Manual) 7.0 % Lymphocytes % (Manual) 85.1 % Monocytes % (Manual) 0.9 % Eosinophils % (Manual) 4.3 % Basophils % (Manual) 0.9 % Promyelocytes % 0.9 % Blast Cells % 0.9 % Neutrophils # (Manual) 0.07 K/uL Total Absolute Neutrophils 0.07 K/uL Lymphocytes # (Manual) 0.83 K/uL Total Absolute Lymphocytes 0.83 K/uL Monocytes # (Manual) 0.01 K/uL Eosinophils # (Manual) 0.04 K/uL Basophils # (Manual) 0.01 K/uL Promyelocytes # 0.01 K/uL Blast Cells # 0.01 K/uL Dohle Bodies 2+ Platelet Estimate SIGNIFIC DECREASED Peripheral Blood Smear Path Consult Prothrombin Time 10.4 SECONDS Prothromb Time International Ratio 1.0 Estimated Average Glucose 214 mg/dl Hemoglobin A1c 9.1 % Lactic Acid Level 1.7 mmol/L Test 09/18/16 07:47 09/18/16 11:31 09/18/16 16:23 Bedside Glucose 181 mg/dl 133 mg/dl 107 mg/dl CXR: Unchanging nodular density peripheral aspect left midlung. Unchanging pleural reactive change left base. Right lung is considered clear. No evidence for cardiac enlargement. 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 Follow up cultures. Continue acyclovir. Started on fluconazole. Hold atorvastatin until he is off fluconazole. Continue daily neupogen 300mcg SC daily until Absolute neutrophil count is >/= 1000 for 2 consecutive days Strict neutropenia precautions Anemia: spoke to Dr Ruffin - transfuse irradiated PRBC 1 unit today. Keep hemoglobin>/=8 g/dl Thrombocytopenia- transfused 1 unit irradiated platelet today. Keep platelet count>/=20,[address] Ruffin this morning and Dr Rodriguez this pm. I also discussed at bedside with the patient and his . Thank you for allowing us to participate in the care of this patient
[2016-09-18] MEDS: ACETAMINOPHEN 500 MG TAB PO SCH (20:53)
[2016-09-18] MEDS ORDERED: ACETAMINOPHEN 500 MG TAB PO SCH (21:00)
[2016-09-19 04:10] VITALS: BP 134/80; PULSE 94; TEMP 37.8; O2SAT 92
[2016-09-19] MEDS: ACETAMINOPHEN 325 MG TAB PO PRN (05:13)
[2016-09-19 06:39] LABS: BUN/CREATININE RATIO 8.7 (10-20); CALCIUM 7.8 mg/dl (8.5-10.1); CREATININE 1.5 mg/dl (0.60-1.40); MAGNESIUM 1.3 mg/dl (1.8-2.4); POTASSIUM 3.8 mmol/L (3.5-5.1)
[2016-09-19 06:48] LABS: PHOSPHORUS 3.7 mg/dl (2.5-4.9)
[2016-09-19 07:02] LABS: HEMATOCRIT 29.3 % (42-52); MEAN CELL VOLUME 90.2 fL (80-100); MEAN CORPUSCULAR HEMOGLOBIN 31.4 pg (25-34); MEAN CORPUSCULAR HGB CONC 34.8 g/dl (32-36); MEAN PLATELET VOLUME 10.5 fL (7.4-10.4); PLATELET COUNT 46 K/uL (130-400); RED BLOOD COUNT 3.25 M/uL (4.7-6.1); WHITE BLOOD COUNT 2.49 K/uL (4.8-10.8)
[2016-09-19 07:13] VITALS: BP 119/76; PULSE 83; TEMP 37.2; O2SAT 92
[2016-09-19 07:28] LABS: DOHLE BODIES 2+; GIANT PLATELETS 2+; PLT ESTIMATE DECREASED; VACUOLIZATION 1+
[2016-09-19] MEDS ORDERED: MAGNESIUM SULFATE 1GM / D5W 1 GM in PREMIXED IN D5W 100 ML IV ONE (08:00)
[2016-09-19] MEDS: SODIUM CHLORIDE 0.9% 1000ML 1,000 ML IV SCH ×2 (08:09→17:52)
[2016-09-19] MEDS: LORATADINE 10 MG TAB PO SCH (08:17)
[2016-09-19] MEDS: METOPROLOL TARTRATE 25 MG TAB PO SCH ×2 (08:18→21:03)
[2016-09-19] MEDS: FLUCONAZOLE 100 MG TAB PO SCH (08:18)
[2016-09-19] MEDS: MULTIVITAMIN TAB PO SCH (08:19)
[2016-09-19] MEDS: MAGNESIUM OXIDE 400 MG TAB PO SCH ×2 (08:19→21:00)
[2016-09-19] MEDS: GABAPENTIN 100 MG CAP PO SCH ×2 (08:19→21:00)
[2016-09-19] MEDS: CHOLECALCIFEROL 1000 INTER.UNIT TAB PO SCH (08:20)
[2016-09-19] MEDS: POT PHOSPHATE MONOBASIC W/ SOD TAB PO SCH ×4 (08:20→21:02)
[2016-09-19] MEDS: PANTOprazole SOD 40 MG TAB PO SCH (08:20)
[2016-09-19] MEDS: ALLOPURINOL 100 MG TAB PO SCH (08:21)
[2016-09-19] MEDS: ACYCLOVIR 400 MG TAB PO SCH ×2 (08:21→21:01)
[2016-09-19] MEDS: INSULIN HUMAN REGULAR SC SCH ×4 (09:18→21:06)
[2016-09-19] MEDS: FILGRASTIM 300 MCG/ML 1 ML VIAL SQ SCH (09:19)
[2016-09-19] MEDS: NYSTATIN SUSP 500,000 U/5 ML UDC PO SCH ×4 (09:23→21:01)
[2016-09-19 09:26] LABS: COMPLETE YES; EOSINOPHIL % 5.2 %; LYMPH ABS # 1.38 K/uL (1.2-3.4); LYMPHOCYTE % 55.3 %; META ABS # 0.04 K/uL (0-0); METAMYELOCYTE % 1.7 %; MYELOCYTE % 1.7 %; NEUTROPHILS % 29.3 %
--- NOTE | 2016-09-19 10:57 | Clinical Documentation Query ---
CLINICAL DOCUMENTATION QUERY Dr. MOSLEY, In your clinical opinion is this patient being managed for: (+ ) Pancytopenia due to Antineoplastic chemotherapy ( ) Other explanation of clinical findings (Please Explain) ( ) Unable to determine (Please Define) ( ) Need to Discuss ( ) Not Agree The medical record reflects the following clinical findings, treatment, and risk factors. Clinical Indicators:Documentation in the clinical record reflects pt with severe neutropenia/thrombocytopenia/anemia. WBC 1.01, Hgb 8.8, Hct 26.1, plts 22. Most recently had chemotherapy tx on 09/12/16 Treatment: neupogen, hem/onc consult, monitor CBC, 1U PRBC, 1U platelets Risk Factors: lymphoma receiving chemotherapy treatment Please clarify and document your clinical opinion in the progress notes and discharge summary. Terms such as "probable", "suspected", "likely", "questionable", "possible", or "still to be ruled out" are acceptable. IF IN AGREEMENT, YOU MUST DOCUMENT ABOVE DIAGNOSTIC STATEMENT IN DAILY PROGRESS NOTES AND DISCHARGE SUMMARY. This document is not part of the patient's record. Thank You, Katty Greene, EUGENE [phone]
[2016-09-19] MEDS: CEFEPIME IV 2,000 MG in DEXTROSE 5% 100ML 100 ML IV SCH ×2 (11:37→23:48)
[2016-09-19 12:07] VITALS: BP 118/70; PULSE 68; TEMP 36.5; O2SAT 96
[2016-09-19 12:56] VITALS: Ht 172.7 cm; Wt 72.4 kg
[2016-09-19 16:35] VITALS: BP 130/76; PULSE 78; TEMP 36.4; O2SAT 95
--- NOTE | 2016-09-19 16:55 | Progress Note ---
Internal Med Progress Note Date of Service: Sep 19, 2016. Provider Documentation: SUBJECTIVE: The patient was sen and examined Denies any other symptoms Generally weak otherwise no complaints Feels a little better OBJECTIVE: Vital Signs-as noted below Exam: General-No distress Eyes-normal ENT-normal Neck-Supple Lungs-Clear to ausucltate bilaterally Heart-Regular,no murmur appreciated Abdomen-Benign,no masses,bowel sound present Extremities-N edema Neuro-AAOx3 Generally weak and lethargic Lab data as noted below. 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 [employer] LEAD approx 3 months ago FNA of enlarging mass on left skull base on 08/25/16 -pathology shows malignant DLBCL Was admitted form 09/05/16 to 09/12/16 at [facility] Underwent Chemo tx with Rituxan on 09/05/16 , high dose MTX to penetrate the HE[employer] LEAD Cytarabine /Methylprednisone started on 09/06/16 completed on 09/12/16 Lab work on 09/17/16 shows severe Neutropenia /thrombocytopenia /anemia Pt was started on prophylactic Abx Levaquin 250 mg Po Daily Started on Neupogen 300 mcg daily till ANC normal Heme Onc Dr Medellin consulted ORAL Thrush : -developed painful oral sore after chemo -cont magic mouth wash -oral nystatin and Diflucan 200mg daily PANCYTOPENIA:::Secondary to Chemotherapy NEUTROPENIA,low Hb and Thrombocytopenia As mentioned above Neupogen ordered Monitor WCC Neutropenic precaution Improving THROMBOCYTOPENIA : 22 on Admission Went down to 18 this morning will give 1 unit of platelet paresis 46 now ANEMIA : Due to recent chemo Hb 8.8 Ordered to type and cross 2 units of irradiated PRBC Dropped to 7.4 will give 1 unit PRBC Hb 10 09/19/16 NARENDRA ON CKD STAGE 3 : baseline cr 1.2 ; Cr elevated to 1.5 due to dehydration , recent chemo tx , fever IV fluid NSS @ 100 ml /hr ordered avoid Nephrotoxins -no NSAID's , avoid diuretics /ACEI kept on hold , contrast studies when able Electrolytes Abnormalities Will supplement Recheck -better TYPE 2 DM : hold oral hypoglycemic agents -Metformin , Actos , glipizide , Januvia Insulin SSI Diabetic diet HB A1c ordered in AM lab FULL CODE -code status D/w pt does not have a living will wants resuscitative attempts to be done including CPR , mechanical ventilation if there is a chance for reasonable recovery DVT PROPHYLAXIS : moderate to high risk due to malignancy pharmacological anticoagulation contraindicated due to severe thrombocytopenia SCD and teds pt will be encouraged to ambulate DISPOSITION : Cancer patient under chemo tx PT /OT EVAL prior to discharge home social service consulted to assess discharge needs Medicine follow up with Dr Ospina Likely discharge tomorrow Vital Signs: Date Time Temp Pulse Resp B/P Pulse Ox O2 Delivery O2 Flow Rate FiO2 09/19/16 16:35 36.4 78 16 130/76 95 Room Air 09/19/16 16:00 Room Air 09/19/16 12:07 36.5 68 18 118/70 96 09/19/16 08:00 Room Air 09/19/16 07:13 37.2 83 16 119/76 92 Room Air 09/19/16 04:10 37.8 94 20 134/80 92 Room Air 09/19/16 00:05 Room Air 09/18/16 23:28 37.6 88 16 114/68 90 Room Air 09/18/16 20:01 37.6 85 20 134/69 95 Room Air Lab Results: Results Past 24 Hours Test 09/18/16 20:12 09/19/16 05:50 09/19/16 07:58 09/19/16 11:33 Range/Units Bedside Glucose 173 176 275 70-99 mg/dl White Blood Count 2.49 4.8-10.8 K/uL Red Blood Count 3.25 4.7-6.1 M/uL Hemoglobin 10.2 14.0-18.0 g/dL Hematocrit 29.3 42-52 % Mean Corpuscular Volume 90.2 80-100 fL Mean Corpuscular Hemoglobin 31.4 25-34 pg Mean Corpuscular Hemoglobin Concent 34.8 32-36 g/dl Platelet Count 46 130-400 K/uL Mean Platelet Volume 10.5 7.4-10.4 fL RDW Standard Deviation 45.5 36.4-46.3 fL RDW Coefficient of Variation 13.7 11.5-14.5 % Nucleated RBC Absolute Count (auto) 0.03 0-0 K/uL Neutrophils % (Manual) 29.3 % Lymphocytes % (Manual) 55.3 % Monocytes % (Manual) 1.7 % Eosinophils % (Manual) 5.2 % Metamyelocytes % 1.7 % Myelocytes % 1.7 % Promyelocytes % 1.7 % Blast Cells % 3.4 % Nucleated Red Blood Cells % 1.0 % Neutrophils # (Manual) 0.73 1.4-6.5 K/uL Total Absolute Neutrophils 0.73 1.4-6.5 K/uL Lymphocytes # (Manual) 1.38 1.2-3.4 K/uL Total Absolute Lymphocytes 1.38 1.2-3.4 K/uL Monocytes # (Manual) 0.04 0.11-0.59 K/uL Eosinophils # (Manual) 0.13 0-0.5 K/uL Metamyelocytes # 0.04 0-0 K/uL Myelocytes # 0.04 0-0 K/uL Promyelocytes # 0.04 0-0 K/uL Hypogranular Neutrophils 3+ Blast Cells # 0.08 0-0 K/uL Toxic Vacuolation 1+ Dohle Bodies 2+ Platelet Estimate DECREASED Giant Platelets 2+ Sodium Level 145 136-145 mmol/L Potassium Level 3.8 3.5-5.1 mmol/L Chloride Level 108 98-107 mmol/L Carbon Dioxide Level 25 21-32 mmol/L Anion Gap 12.0 3-11 mmol/L Blood Urea Nitrogen 13 7-18 mg/dl Creatinine 1.50 0.60-1.40 mg/dl Est Creatinine Clear Calc Drug Dose 40.5 ml/min Estimated GFR () 51.7 Estimated GFR (Non- 44.6 BUN/Creatinine Ratio 8.7 10-20 Random Glucose 171 70-99 mg/dl Calcium Level 7.8 8.5-10.1 mg/dl Phosphorus Level 3.7 2.5-4.9 mg/dl Magnesium Level 1.3 1.8-2.4 mg/dl Test 09/19/16 16:21 Range/Units Bedside Glucose 157 70-99 mg/dl
--- NOTE | 2016-09-19 18:20 | Hematology/Oncology Prog Note ---
Hematology/Onc Progress Note Date of Service Sep 19, 2016. Subjective Patient seen and examined S: feels improved. Less fatigue, still has generalized weakness, states he does not want PT consult No cough or shortness of breath no fever or chills and lip soreness almost resolved Review of Systems: no fever or chills or night sweats no headache no nausea or vomiting or diarrhea or abdominal pain no cough or shortness of breath or chest pain Vital Signs Vital Signs Past 12 Hours Date Time Temp Pulse Resp B/P Pulse Ox O2 Delivery O2 Flow Rate FiO2 09/19/16 16:35 36.4 78 16 130/76 95 Room Air 09/19/16 16:00 Room Air 09/19/16 12:07 36.5 68 18 118/70 96 09/19/16 08:00 Room Air 09/19/16 07:13 37.2 83 16 119/76 92 Room Air Physical Exam Gen: awkae and alert, NAD HEENT: no erythema or exudate Neck: no palpable adenopathy Lungs: CTAB CV: S1 S2 RRR Abd: soft NT/NT Ext: no edema nontender Laboratory Results Past 24 Hours Test 09/18/16 20:12 09/19/16 05:50 09/19/16 07:58 09/19/16 11:33 Range/Units Bedside Glucose 173 176 275 70-99 mg/dl White Blood Count 2.49 4.8-10.8 K/uL Red Blood Count 3.25 4.7-6.1 M/uL Hemoglobin 10.2 14.0-18.0 g/dL Hematocrit 29.3 42-52 % Mean Corpuscular Volume 90.2 80-100 fL Mean Corpuscular Hemoglobin 31.4 25-34 pg Mean Corpuscular Hemoglobin Concent 34.8 32-36 g/dl Platelet Count 46 130-400 K/uL Mean Platelet Volume 10.5 7.4-10.4 fL RDW Standard Deviation 45.5 36.4-46.3 fL RDW Coefficient of Variation 13.7 11.5-14.5 % Nucleated RBC Absolute Count (auto) 0.03 0-0 K/uL Neutrophils % (Manual) 29.3 % Lymphocytes % (Manual) 55.3 % Monocytes % (Manual) 1.7 % Eosinophils % (Manual) 5.2 % Metamyelocytes % 1.7 % Myelocytes % 1.7 % Promyelocytes % 1.7 % Blast Cells % 3.4 % Nucleated Red Blood Cells % 1.0 % Neutrophils # (Manual) 0.73 1.4-6.5 K/uL Total Absolute Neutrophils 0.73 1.4-6.5 K/uL Lymphocytes # (Manual) 1.38 1.2-3.4 K/uL Total Absolute Lymphocytes 1.38 1.2-3.4 K/uL Monocytes # (Manual) 0.04 0.11-0.59 K/uL Eosinophils # (Manual) 0.13 0-0.5 K/uL Metamyelocytes # 0.04 0-0 K/uL Myelocytes # 0.04 0-0 K/uL Promyelocytes # 0.04 0-0 K/uL Hypogranular Neutrophils 3+ Blast Cells # 0.08 0-0 K/uL Toxic Vacuolation 1+ Dohle Bodies 2+ Platelet Estimate DECREASED Giant Platelets 2+ Sodium Level 145 136-145 mmol/L Potassium Level 3.8 3.5-5.1 mmol/L Chloride Level 108 98-107 mmol/L Carbon Dioxide Level 25 21-32 mmol/L Anion Gap 12.0 3-11 mmol/L Blood Urea Nitrogen 13 7-18 mg/dl Creatinine 1.50 0.60-1.40 mg/dl Est Creatinine Clear Calc Drug Dose 40.5 ml/min Estimated GFR () 51.7 Estimated GFR (Non- 44.6 BUN/Creatinine Ratio 8.7 10-20 Random Glucose 171 70-99 mg/dl Calcium Level 7.8 8.5-10.1 mg/dl Phosphorus Level 3.7 2.5-4.9 mg/dl Magnesium Level 1.3 1.8-2.4 mg/dl Test 09/19/16 16:21 Range/Units Bedside Glucose 157 70-99 mg/dl Blood cultures: No growth to date Assessment & Plan 75 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 continue neupogen injections 300mcg SC daily today and tomorrow Check repeat CBC w/ diff in am. continue neutropenia precautions at this time Cultures negative agree with D/C/ cefepime. monitor off antibiotic. Anemia - improved. received 1 unit PRBC yesterday thrombocytopenia: platelet count improved today. He received a unit of platelets yesterday Recheck counts tomorrow hypomagenesemia - recommend replete magnesium Follow up in the office as scheduled upon discharge. I discussed with the patient and his Also discussed with Dr Ruffin
[2016-09-19 19:51] VITALS: BP 132/80; PULSE 90; TEMP 37.3; O2SAT 96
[2016-09-19] MEDS: ACETAMINOPHEN 500 MG TAB PO SCH (21:02)
[2016-09-19 23:02] VITALS: BP 122/72; PULSE 93; TEMP 37.2; O2SAT 90
[2016-09-20] VITALS (9 sets, daily range): BP systolic 100–142; BP diastolic 63–84; PULSE 76–97; TEMP 36.7–37.9; O2SAT 90–97
[2016-09-20] MEDS: SODIUM CHLORIDE 0.9% 1000ML 1,000 ML IV SCH ×3 (04:00→23:00)
[2016-09-20 05:51] LABS: HEMATOCRIT 25.3 % (42-52); MEAN CELL VOLUME 89.7 fL (80-100); MEAN CORPUSCULAR HEMOGLOBIN 31.6 pg (25-34); MEAN CORPUSCULAR HGB CONC 35.2 g/dl (32-36); RED BLOOD COUNT 2.82 M/uL (4.7-6.1); WHITE BLOOD COUNT 2.55 K/uL (4.8-10.8)
[2016-09-20 06:13] LABS: MEAN PLATELET VOLUME 11.2 fL (7.4-10.4); PLATELET COUNT 37 K/uL (130-400)
[2016-09-20 06:30] LABS: BUN/CREATININE RATIO 8.4 (10-20); CALCIUM 7.1 mg/dl (8.5-10.1); CREATININE 1.3 mg/dl (0.60-1.40); MAGNESIUM 1.3 mg/dl (1.8-2.4); POTASSIUM 3.6 mmol/L (3.5-5.1)
[2016-09-20 06:33] LABS: COMPLETE YES; LARGE PLATELETS 1+; LYMPH ABS # 0.51 K/uL (1.2-3.4); META ABS # 0.18 K/uL (0-0); MYELOCYTE % 0.9 %; TOXIC GRANULATION 2+; VACUOLIZATION 1+
[2016-09-20 06:41] LABS: PHOSPHORUS 2.3 mg/dl (2.5-4.9)
[2016-09-20] MEDS: ACYCLOVIR 400 MG TAB PO SCH ×2 (08:45→20:10)
[2016-09-20] MEDS: GABAPENTIN 100 MG CAP PO SCH ×2 (08:45→20:10)
[2016-09-20] MEDS: ALLOPURINOL 100 MG TAB PO SCH (08:45)
[2016-09-20] MEDS: MAGNESIUM OXIDE 400 MG TAB PO SCH ×2 (08:45→20:11)
[2016-09-20] MEDS: NYSTATIN SUSP 500,000 U/5 ML UDC PO SCH ×4 (08:45→20:09)
[2016-09-20] MEDS: LORATADINE 10 MG TAB PO SCH (08:46)
[2016-09-20] MEDS: METOPROLOL TARTRATE 25 MG TAB PO SCH ×2 (08:46→20:09)
[2016-09-20] MEDS: MULTIVITAMIN TAB PO SCH (08:46)
[2016-09-20] MEDS: PANTOprazole SOD 40 MG TAB PO SCH (08:46)
[2016-09-20] MEDS: POT PHOSPHATE MONOBASIC W/ SOD TAB PO SCH ×4 (08:46→20:09)
[2016-09-20] MEDS: CHOLECALCIFEROL 1000 INTER.UNIT TAB PO SCH (08:46)
[2016-09-20] MEDS: FLUCONAZOLE 100 MG TAB PO SCH (08:47)
[2016-09-20] MEDS: ONDANSETRON INJ 2 MG/ML 2 ML VIAL IV PRN (08:54)
[2016-09-20] MEDS: FILGRASTIM 300 MCG/ML 1 ML VIAL SQ SCH (08:54)
[2016-09-20] MEDS: ACETAMINOPHEN 325 MG TAB PO PRN (08:55)
[2016-09-20] MEDS: INSULIN HUMAN REGULAR SC SCH ×4 (09:01→20:15)
[2016-09-20] MEDS: MAGNESIUM SULFATE 1GM / D5W 1 GM in PREMIXED IN D5W 100 ML IV SCH ×2 (10:00→11:02)
--- NOTE | 2016-09-20 12:22 | Progress Note ---
Internal Med Progress Note Date of Service: Sep 20, 2016. Provider Documentation: SUBJECTIVE: The patient was sen and examined Denies any other symptoms Generally weak otherwise no complaints Feels a little better but very nauseous since last night Pain is controlled OBJECTIVE: Vital Signs-as noted below Exam: General-No distress Eyes-normal ENT-normal Neck-Supple Lungs-Clear to ausucltate bilaterally Heart-Regular,no murmur appreciated Abdomen-Benign,no masses,bowel sound present Extremities-N edema Neuro-AAOx3 Generally weak and lethargic Lab data as noted below. 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 ) of [place] approx 3 months ago FNA of enlarging mass on left skull base on 08/25/16 -pathology shows malignant DLBCL Was admitted form 09/05/16 to 09/12/16 at [facility] Underwent Chemo tx with Rituxan on 09/05/16 , high dose MTX to penetrate the [place] Cytarabine /Methylprednisone started on 09/06/16 completed on 09/12/16 Lab work on 09/17/16 shows severe Neutropenia /thrombocytopenia /anemia Pt was started on prophylactic Abx Levaquin 250 mg Po Daily Started on Neupogen 300 mcg daily till ANC normal Heme Onc Dr Medellin consulted -appreciate input ORAL Thrush : -developed painful oral sore after chemo -cont magic mouth wash -oral nystatin and Diflucan 200mg daily PANCYTOPENIA:::Secondary to Chemotherapy NEUTROPENIA,low Hb and Thrombocytopenia As mentioned above Neupogen ordered Monitor WCC Neutropenic precaution All of the cell lines are improving THROMBOCYTOPENIA : 22 on Admission Went down to 18 this morning will give 1 unit of platelet paresis 37 today 09/20/16 ANEMIA : Due to recent chemo Hb 8.8 Ordered to type and cross 2 units of irradiated PRBC Dropped to 7.4 will give 1 unit PRBC Hb 8.9 on 09/20/16 NARENDRA ON CKD STAGE 3 : baseline cr 1.2 ; Cr elevated to 1.5 due to dehydration , recent chemo tx , fever IV fluid NSS @ 100 ml /hr ordered avoid Nephrotoxins -no NSAID's , avoid diuretics /ACEI kept on hold , contrast studies when able Electrolytes Abnormalities Will supplement Recheck -better TYPE 2 DM : hold oral hypoglycemic agents -Metformin , Actos , glipizide , Januvia Insulin SSI Diabetic diet HB A1c ordered in AM lab FULL CODE -code status D/w pt does not have a living will wants resuscitative attempts to be done including CPR , mechanical ventilation if there is a chance for reasonable recovery DVT PROPHYLAXIS : moderate to high risk due to malignancy pharmacological anticoagulation contraindicated due to severe thrombocytopenia SCD and teds pt will be encouraged to ambulate DISPOSITION : Cancer patient under chemo tx PT /OT EVAL prior to discharge home social service consulted to assess discharge needs Medicine follow up with Dr Ospina Likely discharge in a day or two Vital Signs: Date Time Temp Pulse Resp B/P Pulse Ox O2 Delivery O2 Flow Rate FiO2 09/20/16 08:45 37.9 09/20/16 08:40 93 Room Air 09/20/16 07:58 37.1 83 18 133/79 93 Room Air 09/20/16 04:00 37.4 97 16 142/84 90 Room Air 09/19/16 23:59 Room Air 09/19/16 23:02 37.2 93 16 122/72 90 Room Air 09/19/16 20:00 Room Air 09/19/16 19:51 37.3 90 16 132/80 96 Room Air 09/19/16 16:35 36.4 78 16 130/76 95 Room Air 09/19/16 16:00 Room Air Lab Results: Results Past 24 Hours Test 09/19/16 16:21 09/19/16 20:24 09/20/16 05:45 09/20/16 07:38 Range/Units Bedside Glucose 157 161 234 70-99 mg/dl White Blood Count 2.55 4.8-10.8 K/uL Red Blood Count 2.82 4.7-6.1 M/uL Hemoglobin 8.9 14.0-18.0 g/dL Hematocrit 25.3 42-52 % Mean Corpuscular Volume 89.7 80-100 fL Mean Corpuscular Hemoglobin 31.6 25-34 pg Mean Corpuscular Hemoglobin Concent 35.2 32-36 g/dl Platelet Count 37 130-400 K/uL Mean Platelet Volume 11.2 7.4-10.4 fL RDW Standard Deviation 45.3 36.4-46.3 fL RDW Coefficient of Variation 13.6 11.5-14.5 % Nucleated RBC Absolute Count (auto) 0.03 0-0 K/uL Neutrophils % (Manual) 53.0 % Lymphocytes % (Manual) 20.0 % Monocytes % (Manual) 3.5 % Eosinophils % (Manual) 7.0 % Metamyelocytes % 7.0 % Myelocytes % 0.9 % Promyelocytes % 4.3 % Blast Cells % 4.3 % Nucleated Red Blood Cells % 1.3 % Neutrophils # (Manual) 1.35 1.4-6.5 K/uL Total Absolute Neutrophils 1.35 1.4-6.5 K/uL Lymphocytes # (Manual) 0.51 1.2-3.4 K/uL Total Absolute Lymphocytes 0.51 1.2-3.4 K/uL Monocytes # (Manual) 0.09 0.11-0.59 K/uL Eosinophils # (Manual) 0.18 0-0.5 K/uL Metamyelocytes # 0.18 0-0 K/uL Myelocytes # 0.02 0-0 K/uL Promyelocytes # 0.11 0-0 K/uL Blast Cells # 0.11 0-0 K/uL Toxic Granulation 2+ Toxic Vacuolation 1+ Large Platelets 1+ Sodium Level 145 136-145 mmol/L Potassium Level 3.6 3.5-5.1 mmol/L Chloride Level 107 98-107 mmol/L Carbon Dioxide Level 26 21-32 mmol/L Anion Gap 12.0 3-11 mmol/L Blood Urea Nitrogen 11 7-18 mg/dl Creatinine 1.30 0.60-1.40 mg/dl Est Creatinine Clear Calc Drug Dose 46.8 ml/min Estimated GFR () 61.4 Estimated GFR (Non- 53.0 BUN/Creatinine Ratio 8.4 10-20 Random Glucose 214 70-99 mg/dl Calcium Level 7.1 8.5-10.1 mg/dl Phosphorus Level 2.3 2.5-4.9 mg/dl Magnesium Level 1.3 1.8-2.4 mg/dl
[2016-09-20] MEDS: ACETAMINOPHEN 500 MG TAB PO SCH (20:12)
[2016-09-21] VITALS (10 sets, daily range): BP systolic 108–143; BP diastolic 67–83; PULSE 72–106; TEMP 36.5–37; O2SAT 92–98
[2016-09-21 06:54] LABS: BUN/CREATININE RATIO 7.9 (10-20); CALCIUM 6.9 mg/dl (8.5-10.1); CREATININE 1.2 mg/dl (0.60-1.40); MAGNESIUM 1.9 mg/dl (1.8-2.4); POTASSIUM 3.4 mmol/L (3.5-5.1)
[2016-09-21] MEDS: LORATADINE 10 MG TAB PO SCH (08:06)
[2016-09-21] MEDS: CHOLECALCIFEROL 1000 INTER.UNIT TAB PO SCH (08:06)
[2016-09-21] MEDS: PANTOprazole SOD 40 MG TAB PO SCH (08:06)
[2016-09-21] MEDS: GABAPENTIN 100 MG CAP PO SCH (08:06)
[2016-09-21] MEDS: MULTIVITAMIN TAB PO SCH (08:06)
[2016-09-21] MEDS: FLUCONAZOLE 100 MG TAB PO SCH (08:06)
[2016-09-21] MEDS: METOPROLOL TARTRATE 25 MG TAB PO SCH (08:07)
[2016-09-21] MEDS: MAGNESIUM OXIDE 400 MG TAB PO SCH (08:07)
[2016-09-21] MEDS: NYSTATIN SUSP 500,000 U/5 ML UDC PO SCH ×2 (08:07→12:04)
[2016-09-21] MEDS: ACYCLOVIR 400 MG TAB PO SCH (08:08)
[2016-09-21] MEDS: ALLOPURINOL 100 MG TAB PO SCH (08:08)
[2016-09-21] MEDS: POT PHOSPHATE MONOBASIC W/ SOD TAB PO SCH ×2 (08:08→12:05)
[2016-09-21] MEDS: INSULIN HUMAN REGULAR SC SCH ×2 (08:50→13:05)
[2016-09-21] MEDS: SODIUM CHLORIDE 0.9% 1000ML 1,000 ML IV SCH (08:53)
[2016-09-21] MEDS: ACETAMINOPHEN 325 MG TAB PO PRN (08:56)
[2016-09-21] MEDS ORDERED: POTASSIUM CHLORIDE 10 MEQ TABCR PO ONE (09:00)
[2016-09-21 10:38] LABS: HEMATOCRIT 23.6 % (42-52); MEAN CELL VOLUME 90.1 fL (80-100); MEAN CORPUSCULAR HEMOGLOBIN 30.9 pg (25-34); MEAN CORPUSCULAR HGB CONC 34.3 g/dl (32-36); RED BLOOD COUNT 2.62 M/uL (4.7-6.1); WHITE BLOOD COUNT 4.31 K/uL (4.8-10.8)
[2016-09-21 10:57] LABS: MEAN PLATELET VOLUME 10.6 fL (7.4-10.4); PLATELET COUNT 50 K/uL (130-400)
--- NOTE | 2016-09-21 11:03 | Progress Note ---
Internal Med Progress Note Date of Service: Sep 21, 2016. Provider Documentation: SUBJECTIVE: The patient was sen and examined Feels a lot better Ready to be discharged OBJECTIVE: Vital Signs-as noted below Exam: General-No distress at rest Eyes-normal ENT-normal Neck-Supple Lungs-Clear to ausucltate bilaterally Heart-Regular,no murmur appreciated Abdomen-Benign,no masses,bowel sound present Extremities-N edema Neuro-AAOx3 No focal neurological findings Lab data as noted below. 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 ) of ROOM WORK[employer] approx 3 months ago FNA of enlarging mass on left skull base on 08/25/16 -pathology shows malignant DLBCL Was admitted form 09/05/16 to 09/12/16 at [facility] Underwent Chemo tx with Rituxan on 09/05/16 , high dose MTX to penetrate the [employer] WORKER Cytarabine /Methylprednisone started on 09/06/16 completed on 09/12/16 Lab work on 09/17/16 shows severe Neutropenia /thrombocytopenia /anemia Pt was started on prophylactic Abx Levaquin 250 mg Po Daily Started on Neupogen 300 mcg daily till ANC normal Heme Onc Dr Medellin consulted -appreciate input ORAL Thrush : -developed painful oral sore after chemo -cont magic mouth wash -oral nystatin and Diflucan 200mg daily -will continue PANCYTOPENIA:::Secondary to Chemotherapy NEUTROPENIA,low Hb and Thrombocytopenia As mentioned above Neupogen ordered Monitor WCC Neutropenic precaution All of the cell lines are improved THROMBOCYTOPENIA : 22 on Admission Went down to 18 this morning will give 1 unit of platelet paresis 50 today 09/20/16 ANEMIA : Due to recent chemo Hb 8.8 Ordered to type and cross 2 units of irradiated PRBC Dropped to 7.4 will give 1 unit PRBC Hb 8.1 on 09/21/16 NARENDRA ON CKD STAGE 3 : baseline cr 1.2 ; Cr elevated to 1.5 due to dehydration , recent chemo tx , fever IV fluid NSS @ 100 ml /hr ordered avoid Nephrotoxins -no NSAID's , avoid diuretics /ACEI kept on hold , contrast studies when able Electrolytes Abnormalities Will supplement Recheck -better TYPE 2 DM : hold oral hypoglycemic agents -Metformin , Actos , glipizide , Januvia Insulin SSI Diabetic diet HB A1c ordered in AM lab FULL CODE -code status D/w pt does not have a living will wants resuscitative attempts to be done including CPR , mechanical ventilation if there is a chance for reasonable recovery DVT PROPHYLAXIS : moderate to high risk due to malignancy pharmacological anticoagulation contraindicated due to severe thrombocytopenia SCD and teds pt will be encouraged to ambulate DISPOSITION : Cancer patient under chemo tx PT /OT EVAL prior to discharge home social service consulted to assess discharge needs Medicine follow up with Dr Ospina Discharge home today Vital Signs: Date Time Temp Pulse Resp B/P Pulse Ox O2 Delivery O2 Flow Rate FiO2 09/21/16 08:45 92 Room Air 09/21/16 06:59 36.9 89 20 126/71 92 Room Air 09/21/16 04:50 36.9 90 20 111/68 93 Room Air 09/21/16 00:00 97 Room Air 09/20/16 23:28 36.7 88 18 100/63 93 Room Air 09/20/16 19:47 37.1 81 18 116/74 90 Room Air 09/20/16 16:00 97 Room Air 09/20/16 15:07 36.9 80 16 108/69 97 2.0 09/20/16 12:24 37.2 76 18 104/65 91 Room Air Lab Results: Results Past 24 Hours Test 09/20/16 11:36 09/20/16 16:51 09/20/16 20:08 09/21/16 05:55 Range/Units Bedside Glucose 211 151 219 70-99 mg/dl Sodium Level 146 136-145 mmol/L Potassium Level 3.4 3.5-5.1 mmol/L Chloride Level 109 98-107 mmol/L Carbon Dioxide Level 27 21-32 mmol/L Anion Gap 10.0 3-11 mmol/L Blood Urea Nitrogen 10 7-18 mg/dl Creatinine 1.20 0.60-1.40 mg/dl Est Creatinine Clear Calc Drug Dose 50.7 ml/min Estimated GFR () 67.7 Estimated GFR (Non- 58.4 BUN/Creatinine Ratio 7.9 10-20 Random Glucose 153 70-99 mg/dl Calcium Level 6.9 8.5-10.1 mg/dl Magnesium Level 1.9 1.8-2.4 mg/dl Test 09/21/16 07:28 09/21/16 10:30 Range/Units Bedside Glucose 176 70-99 mg/dl White Blood Count 4.31 4.8-10.8 K/uL Red Blood Count 2.62 4.7-6.1 M/uL Hemoglobin 8.1 14.0-18.0 g/dL Hematocrit 23.6 42-52 % Mean Corpuscular Volume 90.1 80-100 fL Mean Corpuscular Hemoglobin 30.9 25-34 pg Mean Corpuscular Hemoglobin Concent 34.3 32-36 g/dl Platelet Count 50 130-400 K/uL Mean Platelet Volume 10.6 7.4-10.4 fL RDW Standard Deviation 46.2 36.4-46.3 fL RDW Coefficient of Variation 14.1 11.5-14.5 % Nucleated RBC Absolute Count (auto) 0.02 0-0 K/uL Nucleated Red Blood Cells % 0.5 % Microbiology Results 09/21/16 C.difficile Toxin B Gene (PCR) - Final, Complete No C. difficile toxin B gene detected
[2016-09-21 11:37] LABS: COMPLETE YES; DOHLE BODIES 1+; EOSINOPHIL % 4.4 %; LARGE PLATELETS 1+; LYMPH ABS # 0.79 K/uL (1.2-3.4); LYMPHOCYTE % 18.4 %; META ABS # 0.04 K/uL (0-0); METAMYELOCYTE % 0.9 %; MYELOCYTE % 3.5 %; NEUTROPHILS % 63.1 %; TOXIC GRANULATION 1+; VACUOLIZATION 1+
[2016-09-21] MEDS: ONDANSETRON INJ 2 MG/ML 2 ML VIAL IV PRN (13:58)
[2016-09-21] MEDS ORDERED: DFL100 PO (16:35)
--- NOTE | 2016-09-21 16:37 | Discharge Instructions ---
Discharge Instructions Admission Reason for Admission: Lymphoma, Neutropenic Fever Discharge Discharge Diagnosis / Problem: Chemotherapy induced Pancytopenia,Neutropenic Fever Discharge Goals Goal(s): Prevent Disease Progression Activity Recommendations Activity Limitations: resume your previous activity . Instructions / Follow-Up Instructions / Follow-Up Pleaskeep appointment with Dr Medellin tomorrow.Make a follow up appointment with Dr Ospina in 1 week Current Hospital Diet Patient's current hospital diet: Diabetes Type 2 Diet Discharge Diet Recommended Diet: Diabetes Type 2 Diet Pending Studies Studies pending at discharge: no Laboratory Results Hemoglobin A1c Test 09/18/16 06:30 Range/Units Estimated Average Glucose 214 mg/dl Hemoglobin A1c 9.1 H 4.5-5.6 % Medical Emergencies . Who to Call and When: Medical Emergencies: If at any time you feel your situation is an emergency, please call 911 immediately. . Non-Emergent Contact Non-Emergency issues call your: Primary Care Provider . 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 "Provider Documentation" section prepared by Nicole Ruffin. VTE Core Measure Inpt VTE Proph given/why not?: SCD's
--- NOTE | 2016-09-21 16:50 | Discharge Summary ---
Discharge Summary Admission Date: Sep 17, 2016 at 22:38 Discharge Date: Sep 21, 2016 Discharge Disposition: Home with services Principal Diagnosis: Pancytopenia,Febrile Neutropenia/Lymphoma Secondary Diagnoses/Problems: Please See H&P Consultations: Oncology Medication Reconciliation New Medications: Fluconazole (Fluconazole) 100 Mg Tab 200 MG PO QAM for 10 Days, #10 TAB Continued Medications: Acetaminophen (Tylenol) 325 Mg Tab 650 MG PO Q6 PRN for Pain or Fever Acetaminophen/Diphenhydramine (Tylenol Pm) 500 Mg/25 Mg Tab 1 TAB PO HS, TAB Acyclovir (Acyclovir) 400 Mg Tab 400 MG PO BID Allopurinol (Zyloprim) 100 Mg Tab 100 MG PO DAILY, TAB Atorvastatin (Lipitor) 80 Mg Tab 80 MG PO DAILY, TAB Cholecalciferol (Vitamin D3) 1,000 Unit Tab 1000 UNIT PO DAILY for 90 Days, #9 TAB 3 Refills Gabapentin (Neurontin) 100 Mg Cap 200 MG PO BID, CAP Glipizide (Glipizide Xl) 5 Mg Tabcr 10 MG PO BID Levofloxacin (Levaquin) 250 Mg Tab 250 MG PO DAILY for 10 Days, TAB Lisinopril (Zestril) 10 Mg Tab 10 MG PO DAILY, TAB Loratadine (Claritin) 10 Mg Tab 10 MG PO DAILY, TAB Maalox/Diphen/Visc. 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 of HEEL SLICKER , [place] [facility] [place] tx on 09/12/16 presented to ED -with complain of fever and chills started around 5 pm temp at home was 100.2 had 2 episode of diarrhea /loose stool no blood in stool in the ED lab work showed -severe pancytopenia WBC 1 K ; ANC 0.08 platelet count 22K hb 8.8 was afebrile will be admitted for febrile neutropenia /in chemo Past Medical/Surgical History Medical Problems: (1) Benign hypertension Status: Chronic (2) Coronary artery disease Status: Chronic (3) Gastroesophageal reflux disease Status: Chronic (4) Hyperlipidemia Status: Chronic (5) Lymphoma Status: Chronic (6) PTCA with stenting Status: Resolved (7) Type II Diabetes Status: Chronic Family History Patient reports no known family medical history. Social History Smoking Status: Former Smoker Marital Status: Housing status: lives with family Occupational Status: employed Immunizations History of Influenza Vaccine: Yes Influenza Vaccine Date: May 10, 2012 History of Tetanus Vaccine?: Unknown History of Pneumococcal: Yes Pneumococcal Date: Apr 10, 2010 History of Hepatitis B Vaccine: Unknown Multi-Drug Resistant Organisms History of MDRO: No Allergies Coded Allergies: No Known Allergies (Verified , 09/17/16) Home Medications Scheduled Acetaminophen/Diphenhydramine (Tylenol Pm), 1 TAB PO HS Acyclovir (Acyclovir), 400 MG PO BID Allopurinol (Zyloprim), 100 MG PO DAILY Atorvastatin (Lipitor), 80 MG PO DAILY Cholecalciferol (Vitamin D3), 1,000 UNIT PO DAILY Gabapentin (Neurontin), 200 MG PO BID Glipizide (Glipizide Xl), 10 MG PO BID Levofloxacin (Levaquin), 250 MG PO DAILY Lisinopril (Zestril), 10 MG PO DAILY Loratadine (Claritin), 10 MG PO DAILY Maalox/Diphen/Visc. Michael/Glyc (Magic Swizzle), 1-2 TSP PO TID Magnesium Oxide (Magnesium), 400 MG PO DAILY Metformin HCl (Metformin HCl), 500 MG PO BIDM Metoprolol Tartrate (Lopressor) (Lopressor), 25 MG PO BID Multivitamin (Multivitamin), 1 TAB PO DAILY Nitroglycerin (Nitrostat), 0.4 MG UT PRN Omeprazole (Prilosec), 20 MG PO DAILY Pioglitazone Hcl (Actos), 30 MG PO DAILY Sitagliptin (Januvia), 50 MG PO DAILY Scheduled PRN Acetaminophen (Tylenol), 650 MG PO Q6 PRN for Pain or Fever Review of Systems Constitutional: + chills, + fatigue, + sweats, + weakness, + weight loss ENT: + hearing loss (left ear ) Respiratory: No cough, No dyspnea at rest, No dyspnea on exertion, No hemoptysis, No problem reported, No shortness of breath, No sputum, No wheezing Abdomen: + diarrhea Genitourinary - Male: No dysuria, No hematuria, No impotence, No lesions, No penile discharge, No problem reported, No urinary frequency, No urinary hesitancy, No urinary incontinence, No urinary retention, No urinary urgency Neurologic: + weakness Endocrine: + fatigue Physical Exam Vital Signs Date Time Temp Pulse Resp B/P Pulse Ox O2 Delivery O2 Flow Rate FiO2 09/17/16 22:16 91 18 131/62 97 Room Air 09/17/16 20:11 37.2 103 18 119/78 97 Room Air 09/17/16 18:42 37.0 98 18 136/63 95 Room Air General Appearance: no apparent distress Head: normocephalic, atraumatic Eyes: normal inspection ENT: + pertinent finding (left eye ptosis /hearing loss of left ear /whitish sore spots on the internal mucosa surface of lower lip ) Neck: supple, no adenopathy, thyroid normal, no JVD, no carotid bruits, trachea midline Respiratory/Chest: chest non-tender, lungs clear, normal breath sounds, no respiratory distress Cardiovascular: regular rate, rhythm, no edema, no gallop, no JVD, no murmur, normal peripheral pulses Abdomen/GI: normal bowel sounds, non tender, soft Extremities/Musculoskelatal: normal capillary refill, no pedal edema, normal range of motion Neurologic/Psych: no motor/sensory deficits, alert, normal mood/affect Skin: normal color, warm/dry, no rash Lymphatic: no adenopathy Diagnostics Laboratory Results Results Past 24 Hours Test 09/17/16 19:15 09/17/16 19:40 Range/Units White Blood Count 1.01 4.8-10.8 K/uL Red Blood Count 2.81 4.7-6.1 M/uL Hemoglobin 8.8 14.0-18.0 g/dL Hematocrit 26.1 42-52 % Mean Corpuscular Volume 92.9 80-100 fL Mean Corpuscular Hemoglobin 31.3 25-34 pg Mean Corpuscular Hemoglobin Concent 33.7 32-36 g/dl Platelet Count 22 130-400 K/uL Mean Platelet Volume 10.4 7.4-10.4 fL Neutrophils (%) (Auto) 7.9 % Lymphocytes (%) (Auto) 79.2 % Monocytes (%) (Auto) 3.0 % Eosinophils (%) (Auto) 8.9 % Basophils (%) (Auto) 0.0 % Neutrophils # (Auto) 0.08 1.4-6.5 K/uL Lymphocytes # (Auto) 0.80 1.2-3.4 K/uL Monocytes # (Auto) 0.03 0.11-0.59 K/uL Eosinophils # (Auto) 0.09 0-0.5 K/uL Basophils # (Auto) 0.00 0-0.2 K/uL RDW Standard Deviation 45.6 36.4-46.3 fL RDW Coefficient of Variation 13.3 11.5-14.5 % Immature Granulocyte % (Auto) 1.0 % Immature Granulocyte # (Auto) 0.01 0.00-0.02 K/uL Sodium Level 144 136-145 mmol/L Potassium Level 4.1 3.5-5.1 mmol/L Chloride Level 108 98-107 mmol/L Carbon Dioxide Level 29 21-32 mmol/L Anion Gap 7.0 3-11 mmol/L Blood Urea Nitrogen 16 7-18 mg/dl Creatinine 1.50 0.60-1.40 mg/dl Est Creatinine Clear Calc Drug Dose 43.3 ml/min Estimated GFR () 51.7 Estimated GFR (Non- 44.6 BUN/Creatinine Ratio 10.3 10-20 Random Glucose 198 70-99 mg/dl Calcium Level 8.1 8.5-10.1 mg/dl Total Bilirubin 0.4 0.2-1 mg/dl Direct Bilirubin 0.1 0-0.2 mg/dl Aspartate Amino Transf (AST/SGOT) 17 15-37 U/L Alanine Aminotransferase (ALT/SGPT) 46 12-78 U/L Alkaline Phosphatase 64 45-117 U/L Total Protein 6.2 6.4-8.2 gm/dl Albumin 2.8 3.4-5.0 gm/dl Procalcitonin 0.05 0-0.5 ng/mL Influenza Type A Antigen Neg for Influ A NEG Influenza Type B Antigen Neg for Influ B NEG Microbiology Results 09/17/16 Blood Culture, Received Pending 09/17/16 Blood Culture, Received Pending Diagnostic Radiology CHEST 2 VIEWS ROUTINE CLINICAL HISTORY: Fever. Patient on chemotherapy. COMPARISON STUDY: 04/30/2016 FINDINGS: The heart is normal in size. There is no lobar consolidation. There is a left basilar pleural-parenchymal scarring. There is a 12 mm left midlung zone nodule versus summation. A follow-up study to include shallow PA obliques is recommended. Several thoracic compression deformities are visualized IMPRESSION: 1. Stable left basilar pleural and parenchymal scarring 2. No evidence of acute parenchymal consolidation 3. 12 mm left midlung zone nodule versus summation Impression Assessment and Plan NEUTROPENIC FEVER: no obvious focus noted significant immunocompromised status -recent chemo /lymphoma /severe neutropenia Blood culture ordered UA -send to urine culture if indicated Cxray no obvious infiltrate noted Left upper lobe possible nodule vs summation -repeat CXray in AM sputum for culture and gram statin pt reports of loose stool this evening stool for C diff ordered Flu swab /MRSA screening swab ordered empiric Abx with Iv Cefepime 2 gm q 12 hrs RECENT DX OF LYMPHOMA ON CHEMO Dx with DLBCL ( diffuse large B cell lymphoma ) of HEEL SLICKER approx 3 months ago pt presented with weakness /dropping of left eye lid , hearing loss on left ear , had B symptoms of fatigue , weakness, night sweats FNA of enlarging mass on left skull base on 08/25/16 -pathology shows malignant DLBCL was admitted form 09/05/16 to 09/12/[address] [facility] underwent Chemo tx with Rituxan on 09/05/16 , high dose MTX to penetrate the HEEL SLICKER Cytarabine /Methylprednisone started on 09/06/16 completed on 09/12/16 pt been followed with Dr Medellin at [facility] Lab work on 09/17/16 shows severe Neutropenia /thrombocytopenia /anemia pt was started on prophylactic Abx Levaquin 250 mg Po Daily started on Neupogen 300 mcg daily till ANC normal Heme Onc Dr Medellin consulted ORAL SORE : developed painful oral sore after chemo cont magic mouth wash oral nystatin NEUTROPENIA due to Lymphoma , recent chemo Neutropenic precaution has been given Neupogen CBC with diff in AM peripheral smear for pathology review Heme onc consult requested THROMBOCYTOPENIA : due to recent chemo tx follow CBC closely no evidence of bleeding transfuse for platelet < 20 K avoid antiplatelets , anticoagulants Heme onc consult requested ANEMIA : due to recent chemo Hb 8.8 ordered to type and cross 2 units of irradiated PRBC tx for hb < 8 or symptom NARENDRA ON CKD STAGE 3 : baseline cr 1.2 ; Cr elevated to 1.5 due to dehydration , recent chemo tx , fever IV fluid NSS @ 100 ml /hr ordered follow PRP avoid Nephrotoxins -no NSAID's , avoid diuretics /ACEI kept on hold , contrast studies when able LOW MG /LOW PHOS : due to recent chemo tx replaced follow lytes TYPE 2 DM : hold oral hypoglycemic agents -Metformin , Actos , glipizide , Januvia Insulin SSI Diabetic diet HB A1c ordered in AM lab FULL CODE -code status D/w pt does not have a living will wants resuscitative attempts to be done including CPR , mechanical ventilation if there is a chance for reasonable recovery DVT PROPHYLAXIS : moderate to high risk due to malignancy pharmacological anticoagulation contraindicated due to severe thrombocytopenia SCD and teds pt will be encouraged to ambulate DISPOSITION : Cancer patient under chemo tx PT /OT EVAL prior to discharge home social service consulted to assess discharge needs Medicine follow up with Dr Ospina VTE Prophylaxis VTE Risk Assessment Done? Y/N: Yes Risk Level: High Note In my clinical judgment this beneficiary meets acute admission criteria, established by [facility], that includes being hospitalized through two midnights. Additional Copies To Mendel Medellin MD Sulman,Manoj Phan, D.O. <Electronically signed by Lorrie Navarrete MD> Signed: 09/18/16 0151 Physical Exam (per Admitting): General Appearance: no apparent distress Head: normocephalic, atraumatic Eyes: normal inspection ENT: + pertinent finding (left eye ptosis /hearing loss of left ear / whitish sore spots on the internal mucosa surface of lower lip ) Neck: supple, no adenopathy, thyroid normal, no JVD, no carotid bruits, trachea midline Respiratory/Chest: chest non-tender, lungs clear, normal breath sounds, no respiratory distress Cardiovascular: regular rate, rhythm, no edema, no gallop, no JVD, no murmur , normal peripheral pulses Abdomen/GI: normal bowel sounds, non tender, soft Extremities/Musculoskelatal: normal capillary refill, no pedal edema, normal range of motion Neurologic/Psych: no motor/sensory deficits, alert, normal mood/affect Skin: normal color, warm/dry, no rash Lymphatic: no adenopathy Hospital Course NEUTROPENIC FEVER: -no obvious focus of Infection identified -significant immunocompromised status -recent chemo for Lymphoma -Blood and Urine culture ordered -Cxray no obvious infiltrate noted .Left upper lobe possible nodule vs summation -repeat CXray in AM -sputum for culture and gram statin -stool for C diff ordered -Flu swab /MRSA screening swab ordered-negative -started on empiric Abx with Iv Cefepime 2 gm q 12 hrs -No fever and no signs of infection -All cultures are negative RECENT DX OF LYMPHOMA ON CHEMO Dx with DLBCL ( diffuse large B cell lymphoma ) of HEEL SLICKER approx 3 months ago FNA of enlarging mass on left skull base on 08/25/16 -pathology shows malignant DLBCL Was admitted form 09/05/16 to 09/12/[address] [facility] Underwent Chemo tx with Rituxan on 09/05/16 , high dose MTX to penetrate the HEEL SLICKER Cytarabine /Methylprednisone started on 09/06/16 completed on 09/12/16 Lab work on 09/17/16 shows severe Neutropenia /thrombocytopenia /anemia Pt was started on prophylactic Abx Levaquin 250 mg Po Daily Started on Neupogen 300 mcg daily till ANC normal Heme Onc Dr Medellin consulted -appreciate input ORAL Thrush : -developed painful oral sore after chemo -cont magic mouth wash -oral nystatin and Diflucan 200mg daily -will continue PANCYTOPENIA:::Secondary to Chemotherapy NEUTROPENIA,low Hb and Thrombocytopenia As mentioned above Neupogen ordered Monitor WCC Neutropenic precaution All of the cell lines are improved THROMBOCYTOPENIA : 22 on Admission Went down to 18 this morning will give 1 unit of platelet paresis 50 today 09/20/16 ANEMIA : Due to recent chemo Hb 8.8 Ordered to type and cross 2 units of irradiated PRBC Dropped to 7.4 will give 1 unit PRBC Hb 8.1 on 09/21/16 NARENDRA ON CKD STAGE 3 : baseline cr 1.2 ; Cr elevated to 1.5 due to dehydration , recent chemo tx , fever IV fluid NSS @ 100 ml /hr ordered avoid Nephrotoxins -no NSAID's , avoid diuretics /ACEI kept on hold , contrast studies when able Electrolytes Abnormalities Will supplement Recheck -better TYPE 2 DM : hold oral hypoglycemic agents -Metformin , Actos , glipizide , Januvia Insulin SSI Diabetic diet HB A1c ordered in AM lab FULL CODE -code status D/w pt does not have a living will wants resuscitative attempts to be done including CPR , mechanical ventilation if there is a chance for reasonable recovery DVT PROPHYLAXIS : moderate to high risk due to malignancy pharmacological anticoagulation contraindicated due to severe thrombocytopenia SCD and teds pt will be encouraged to ambulate DISPOSITION : Cancer patient under chemo tx PT /OT EVAL prior to discharge home social service consulted to assess discharge needs Medicine follow up with Dr Ospina Discharge home today Total time spent on discharge = 35 minutes This includes examination of the patient, discharge planning, medication reconciliation, and communication with other providers. Discharge Instructions Admission Reason for Admission: Lymphoma, Neutropenic Fever Discharge Discharge Diagnosis / Problem: Chemotherapy induced Pancytopenia,Neutropenic Fever Discharge Goals Goal(s): Prevent Disease Progression Activity Recommendations Activity Limitations: resume your previous activity . Instructions / Follow-Up Instructions / Follow-Up Pleaskeep appointment with Dr Medellin tomorrow.Make a follow up appointment with Dr Ospina in 1 week Current Hospital Diet Patient's current hospital diet: Diabetes Type 2 Diet Discharge Diet Recommended Diet: Diabetes Type 2 Diet Pending Studies Studies pending at discharge: no Laboratory Results Hemoglobin A1c Test 09/18/16 06:30 Range/Units Estimated Average Glucose 214 mg/dl Hemoglobin A1c 9.1 H 4.5-5.6 % Medical Emergencies . Who to Call and When: Medical Emergencies: If at any time you feel your situation is an emergency, please call 911 immediately. . Non-Emergent Contact Non-Emergency issues call your: Primary Care Provider . Past History Medical & Surgical History: (1) CKD (chronic kidney disease), stage III (2) DM (diabetes mellitus screen) (3) HTN (hypertension) (4) Retroperitoneal bleed (5) Pulmonary embolism (6) HEEL SLICKER lymphoma . "Provider Documentation" section prepared by Nicole Ruffin. VTE Core Measure Inpt VTE Proph given/why not?: SCD's <Electronically signed by Nicole Ruffin M.D.> Signed: 09/21/16 3425 Signed: The status of this report is Signed * If report status is Draft, the document has not been finalized by the responsible provider. Additional Copies To Maonj Ospina D.O.
[2016-09-25] MEDS ORDERED: LISI5TAB PO (13:33)
[2016-09-25] MEDS ORDERED: METO25TA56 PO (13:33)
[2016-11-07] MEDS ORDERED: prednisone PO (11:47)
[2016-11-07] MEDS ORDERED: NVLGI7030 SC (11:48)
[2016-11-07] MEDS ORDERED: INSDGIPEN SC (11:48)
[2017-04-27] MEDS ORDERED: MAGNTAB17 PEG (09:05)
== END 2016-09-21 17:32 | disposition home health service (06) | DRG 809 ==
LOC: ENRESERVDT → ENRESERVTM → C.EDB 18:31 → UNDOADMIN 22:38 → C.4E 22:38
PROVIDERS: ADMIT Hospitalist; ATTEND Internal Medicine
DX: D70.9 Neutropenia, unspecified (principal); C83.31 Diffuse large B-cell lymphoma, lymph nodes of head, face, and neck; B37.0 Candidal stomatitis; N17.9 Acute kidney failure, unspecified; I12.9 Hypertensive chronic kidney disease with stage 1 through stage 4 chronic kidney disease, or unspecified chronic kidney disease; E11.22 Type 2 diabetes mellitus with diabetic chronic kidney disease; D69.6 Thrombocytopenia, unspecified; E86.0 Dehydration; N18.3 Chronic kidney disease, stage 3 (moderate); I25.10 Atherosclerotic heart disease of native coronary artery without angina pectoris; E83.42 Hypomagnesemia; D64.81 Anemia due to antineoplastic chemotherapy; D61.810 Antineoplastic chemotherapy induced pancytopenia; E78.5 Hyperlipidemia, unspecified; K21.9 Gastro-esophageal reflux disease without esophagitis; T45.1X5A Adverse effect of antineoplastic and immunosuppressive drugs, initial encounter; Z86.711 Personal history of pulmonary embolism; Z87.891 Personal history of nicotine dependence; Z98.61 Coronary angioplasty status; Z90.49 Acquired absence of other specified parts of digestive tract; Z79.84 Long term (current) use of oral hypoglycemic drugs; Z79.899 Other long term (current) drug therapy; C85.90 Non-Hodgkin lymphoma, unspecified, unspecified site

== ENCOUNTER 2016-09-29 06:58 | Day surgery (SDC) | payer OTHER ==
[2016-09-25 13:33] VITALS: BMI 23.0
[~2016-09-29] VITALS: Ht 175.3 cm; Wt 73.2 kg
[~2016-09-29 06:58] MED LIST changes: +ACET325T95 PO; +ALLO100T PO; -ATOR-24 PO; +ATOR-26 PO; +CEFAZOLIN 2000 MG/60 ML D5W IV SCH; +DIPH-437 PO; +GLC500 PO; +LACTATED RINGER'S 1000ML 1,000 ML IV SCH; +LISI5TAB PO; +METO25TA56 PO; -METO50TA16 PO; +MGCS/ PO; +ZVR/400 PO
[2016-09-29] MEDS ORDERED: FENTANYL CITRATE INJ 50 MCG/1 ML 2 ML VIAL ONE (07:29)
[2016-09-29] MEDS ORDERED: LIDOCAINE HCL 2% 2 ML VIAL (20MG/ML) ONE (07:29)
[2016-09-29] MEDS ORDERED: PROPOFOL IV EMULSION 10 MG/ML 20 ML VIAL IV ONE (07:29)
[2016-09-29] MEDS ORDERED: MIDAZOLAM HCL 1 MG/ML 2ML VIAL ONE (07:30)
[2016-09-29 07:32] VITALS: BP 119/68; PULSE 70; TEMP 36.3; O2SAT 96; Ht 175.3 cm; Wt 73.2 kg
[2016-09-29 07:36] LABS: HEMATOCRIT 33.4 % (42-52); MEAN CELL VOLUME 94.9 fL (80-100); MEAN CORPUSCULAR HEMOGLOBIN 31.5 pg (25-34); MEAN PLATELET VOLUME 10.6 fL (7.4-10.4); PLATELET COUNT 493 K/uL (130-400); RED BLOOD COUNT 3.52 M/uL (4.7-6.1)
[2016-09-29 07:44] LABS: MEAN CORPUSCULAR HGB CONC 33.2 g/dl (32-36)
[2016-09-29] MEDS ORDERED: MAGN400T6 PO (07:57)
[2016-09-29] MEDS ORDERED: LIDOCAINE HCL 1% 20 ML VIAL ONE (08:26)
--- NOTE | 2016-09-29 08:32 | History & Physical Bridge Note ---
H&P Re-Evaluation Bridge Note: I have examined the patient, reviewed the History & Physical and in the interval since the performance of the History & Physical I have noted the following changes of clinical significance: No changes noted
[2016-09-29] MEDS ORDERED: SODIUM CHLORIDE 0.9% 1000ML 1,000 ML IV SCH (09:25)
--- NOTE | 2016-09-29 09:25 | [facility] Post Operative Brief Note ---
Immediate Operative Summary Operative Date Sep 29, 2016. Pre-Operative Diagnosis community development worker central venous access Post-Operative Diagnosis residential central venous access Procedure(s) Performed Insertion Infusaport Left Subclavian Vein Surgeon Dr. Per Langley Supervisor Assembling Surgeon(s) Olga Villagomez PA-C Estimated Blood Loss 5ML Findings See dictation Specimens none per surgeon Dr. Per Langley Drains None Anesthesia Local with sedation Complication(s) None Disposition Recovery Room / PACU
--- NOTE | 2016-09-29 09:29 | Discharge Instructions ---
Discharge Instructions Admission Reason for Admission: Lymphoma Discharge Discharge Diagnosis / Problem: Need for fci central venous access Discharge Goals Goal(s): Improve disease control Activity Recommendations Activity Limitations: per Instructions/Follow-up section Lifting Limitations: no more than 10 pounds (with left arm for 1 week) . Instructions / Follow-Up Instructions / Follow-Up MEDICATIONS: Resume previous medications unless instructed otherwise by your surgeon. * Ibuprofen 600 mg every 6 hours with food * Tylenol 650 mg every 4 hours, as needed for pain SPECIAL CARE INSTRUCTIONS: * Your A-port may be used immediately. * May shower in 24 hours. Let water run over area and pat dry. * Leave op-site dressing on for 3 days and then remove. * Call the surgeon's office with any questions or concerns - (ex. temperature higher than 101 degrees F, excessive bleeding or pain). FOLLOW UP VISIT: If not already scheduled, please call the office to schedule a follow-up appointment if there are issues with the port. Office number Current Hospital Diet Patient's current hospital diet: Discharge Diet Recommended Diet: Diabetes Type 2 Diet Procedures Procedures Performed: Insertion Infusaport Left Subclavian Vein Pending Studies Studies pending at discharge: no Laboratory Results Hemoglobin A1c Test 09/18/16 06:30 Range/Units Estimated Average Glucose 214 mg/dl Hemoglobin A1c 9.1 H 4.5-5.6 % Medical Emergencies . Who to Call and When: Medical Emergencies: If at any time you feel your situation is an emergency, please call 911 immediately. . Non-Emergent Contact Non-Emergency issues call your: Primary Care Provider, Surgeon Call Non-Emergent contact if: your pain is worsening, wound has increased redness, wound has increased pain . "Provider Documentation" section prepared by Per Langley. VTE Core Measure Inpt VTE Proph given/why not?: Treatment not indicated
[2016-09-29] MEDS ORDERED: OXYCODONE/ACETAMINOPHEN 5-325 TAB PO PRN (09:30)
[2016-09-29] MEDS ORDERED: ATROPINE SULFATE 0.1 MG/ML 5ML SYR IV PRN (10:00)
[2016-09-29] MEDS ORDERED: EpHEDrine SULFATE INJ 50 MG/ML AMP IV PRN (10:00)
--- NOTE | 2016-09-29 10:01 | Anesthesiology Progress Note ---
Anesthesia Post Op Note Date & Time Sep 29, 2016 at 10:01 Vital Signs Pain Intensity: 0 Vital Signs Past 12 Hours Date Time Temp Pulse Resp B/P Pulse Ox O2 Delivery O2 Flow Rate FiO2 09/29/16 09:45 69 16 129/69 100 Mask 10 09/29/16 09:38 36.2 70 12 115/68 100 Mask 10 09/29/16 07:32 36.3 70 20 119/68 96 Room Air Notes Mental Status: alert / awake / arousable, participated in evaluation Pt Amnestic to Procedure: Yes Nausea / Vomiting: adequately controlled Pain: adequately controlled Airway Patency, RR, SpO2: stable & adequate BP & HR: stable & adequate Hydration State: stable & adequate Anesthetic Complications: no major complications apparent
--- NOTE | 2016-09-29 10:03 | OPERATIVE REPORT ---
DATE OF OPERATION: 09/29/2016 PREOPERATIVE DIAGNOSIS: Need for long-term central venous access. POSTOPERATIVE DIAGNOSIS: Same. PROCEDURE: Placement of A-port tunneled central venous access catheter with port. SURGEON: Dr. Langley. CLINICAL IMPLEMENTATION SPECIALIST: Elaine Angulo PA-C. DATE OF PROCEDURE: 09/29/2016. FINDINGS: The tip of the catheter was placed near the superior vena cava right atrial junction. The port was accessed and there was good blood return and it was easily flushed. TECHNIQUE: The patient was given intravenous sedation and the area was prepped and draped in the usual sterile fashion. The skin and subcutaneous tissue in the left infraclavicular area were anesthetized with 1% Xylocaine without epinephrine. The left subclavian vein was entered on the first attempt and the wire passed with ease. The tip of the wire was confirmed in the right atrium by fluoroscopy. A small incision was made at the skin level at the exit site of the wire and a subcutaneous pocket was created inferior to that to assure soft turn in the catheter. Site for the port was chosen and the skin and subcutaneous tissue superior to that area were anesthetized with 1% Xylocaine without epinephrine. Skin incision was made and was carried down through the subcutaneous tissue to the prepectoral fascia. A prepectoral pocket was created inferior to that incision and the port fit nicely. The introducer sheath device was then passed over the wire under fluoroscopic guidance. The wire and introducer were removed and the catheter was passed through the sheath under fluoroscopic guidance and the tip of the catheter was seen to enter the right atrium. The sheath was peeled. The catheter was passed from the infraclavicular incision to the port incision and fluoroscopy was then used to size the catheter. The catheter was cut to size and attached to the port with ease. The port was accessed and there was good blood return and it was easily flushed. The port was secured to the prepectoral fascia using interrupted 2-0 Prolene sutures. The port incision was closed with a 2-0 Vicryl, the deep subcutaneous tissue with 3-0 Vicryl, and the superficial subcutaneous tissue with a 4-0 Monocryl in a subcuticular fashion for the skin. The infraclavicular incision was closed with 4-0 Monocryl in an interrupted subcuticular suture. The skin was cleansed, dried and a dressing placed. The estimated blood loss was 5 mL. Sponge, needle and instrument counts were correct prior to closure. The patient tolerated the surgical procedure without complication and was transferred to recovery. I attest to the content of the Intraoperative Record and any orders documented therein. Any exceptio ns are noted below.
--- NOTE | 2016-09-29 10:23 | DIAGNOSTIC IMAGING REPORT ---
CHEST ONE VIEW PORTABLE CLINICAL HISTORY: S/P Aport placement COMPARISON STUDY: 09/18/2016 FINDINGS: The cardiac and mediastinal contours remain stable. There has been interval placement of a left-sided A-Port catheter. The tip projects over the superior vena cava. No pneumothorax is visualized. There is an equivocal mild kink within the catheter at the clavicular level. There is mild elevation of the interstitium. There is a very left midlung zone opacity projected over the anterior aspect of the left third rib.[ IMPRESSION: No evidence of pneumothorax status post placement of a left subclavian A-Port catheter. Electronically signed by: Avinash Irby M.D. 09/29/2016 10:22 AM Dictated Date/Time: 09/29/2016 10:19 AM
[2016-09-29 10:35] VITALS: BP 145/82; PULSE 66; TEMP 36; O2SAT 95
[2016-09-29 11:05] VITALS: BP 140/82; PULSE 66; TEMP 36; O2SAT 95
[2016-09-29] MEDS ORDERED: IBUPROFEN 600 MG TAB PO SCH (13:00)
[2016-11-07] MEDS ORDERED: prednisone PO (11:47)
[2016-11-07] MEDS ORDERED: NVLGI7030 SC (11:48)
[2016-11-07] MEDS ORDERED: INSDGIPEN SC (11:48)
[2017-04-27] MEDS ORDERED: MAGNTAB17 PEG (09:05)
== END 2016-09-29 11:13 | disposition home or self-care (01) ==
LOC: C.ACU 06:58
PROVIDERS: ATTEND Surgery
DX: C85.91 Non-Hodgkin lymphoma, unspecified, lymph nodes of head, face, and neck (principal); Z87.891 Personal history of nicotine dependence; E11.9 Type 2 diabetes mellitus without complications; I10 Essential (primary) hypertension; I25.10 Atherosclerotic heart disease of native coronary artery without angina pectoris

== ENCOUNTER → 2017-01-30 | Outpatient (CLI) | payer OTHER ==
[~2017-01-30] MED LIST changes: -ACT/30 PO; -CEFAZOLIN 2000 MG/60 ML D5W IV SCH; +GADAVIST IV PRN; -GLCSR5 PO; +INSDGIPEN SC; -LACTATED RINGER'S 1000ML 1,000 ML IV SCH; -LISI5TAB PO; +MAGN400T6 PO; +MAGNTAB17 PO; +NVLGI/PEN SC; +NVLGI7030 SC; +prednisone PO
--- NOTE | 2017-01-30 13:19 | DIAGNOSTIC IMAGING REPORT ---
ADDENDUM Addendum: Correlation with prior contrast-enhanced MRI the brain performed by [facility] dated October 04, 2016 When comparing the current examination without of September 2016, is now apparent that there is subtle dural enhancement involving the base of the left middle cranial fossa. This appears improved. There is also mild enhancement in the region of Meckel's cave. This also appears improved. There is no pathologic parenchymal enhancement. There is equivocal involvement of the left occipital condyle and left petrous apex. Again the findings appear improved. IMPRESSION: Improved skull base enhancement in the region of the left middle cranial fossa. No evidence of progressive disease. Electronically signed by: Avinash Irby M.D. 02/09/2017 7:29 AM Dictated Date/Time: 02/09/2017 7:23 AM ORIGINAL REPORT MRI OF THE BRAIN WITHOUT AND WITH IV CONTRAST CLINICAL HISTORY: Diffuse large B-cell lymphoma. WORSENING BALANCE ISSUES COMPARISON STUDY: Outside MRI dated 12-24, MRI the brain dated 05/05/2016 TECHNIQUE: MRI of the brain was performed from the vertex to the skull base utilizing various T1 and T2 weighted sequences. Following the IV administration of 7 mL of Gadavist contrast, additional enhanced images were obtained. FINDINGS: Sagittal T1, axial diffusion, proton density and T2 weighted axial, coronal FLAIR, and pre and post axial T1-weighted images were acquired. These were supplemented with post gadolinium coronal T1 weighted images. No intra or extra-axial mass lesions are visualized. Axial diffusion-weighted images reveal no evidence of acute or subacute infarction. There is no evidence of ventricular dilatation. Proton density T2-weighted and FLAIR images reveal scattered foci of increased T2 signal within the white matter, likely on a small vessel basis. There is left frontal lobe encephalomalacia. There are foci of increased FLAIR signal surrounding the region. There are foci of increased FLAIR and T2 signal within the left temporal lobe. These remain unchanged from the prior outside MRI study dated December 09, 2016. There are no abnormal flow voids. There is no evidence of pathologic enhancement. 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 Stable left frontal encephalomalacia, possibly secondary to a prior infarct 2. Chiari I malformation 3. No evidence of acute or subacute infarction 4. Stable foci of increased T2 and FLAIR signal within the left temporal lobe. Stable foci of increased T2 and FLAIR signal within the white matter of the left frontal lobe 5. No evidence of pathologic enhancement Electronically signed by: Avinash Irby M.D. 01/30/2017 1:18 PM Dictated Date/Time: 01/30/2017 1:05 PM
== END | disposition home or self-care (01) ==
LOC: C.MRIBC 11:50
PROVIDERS: ATTEND Internal Medicine Hematology & Oncology
DX: C83.30 Diffuse large B-cell lymphoma, unspecified site (principal); G93.89 Other specified disorders of brain; G93.5 Compression of brain

== ENCOUNTER 2017-04-29 09:23 | Day surgery (SDC) | payer OTHER ==
[2017-04-27 08:37] VITALS: BMI 22.0
--- NOTE | 2017-04-27 09:20 | PAT Medication Instructions ---
Service Date Apr 27, 2017. Current Home Medication List Cholecalciferol (Vitamin D3), 1,000 UNIT PO QAM Insulin Aspart 70/30 (Novolog Mix 70/30), 0 SC Insulin Glargine (Lantus Solostar), 18 UNIT SC PM Loratadine (Claritin), 10 MG PO prn Magnesium Chloride-Calcium Car (Slow-Mag), 1 TAB PEG QAM Metformin HCl (Metformin HCl), 500 MG PO QPM Metoprolol Tartrate (Lopressor) (Lopressor), 25 MG PO BID Multivitamin (Multivitamin), 1 TAB PO QAM Nitroglycerin (Nitrostat), 0.4 MG UT PRN Omeprazole (Prilosec), 20 MG PO QAM Sitagliptin (Januvia), 50 MG PO QAM Medication Instructions For Your Scheduled Surgery - Hold the following medications 48 hours prior to surgery: Metformin HCl (Metformin HCl), 500 MG PO QPM - Hold the following medications the morning of surgery: Cholecalciferol (Vitamin D3), 1,000 UNIT PO QAM Insulin Aspart 70/30 (Novolog Mix 70/30), 0 SC Loratadine (Claritin), 10 MG PO prn Magnesium Chloride-Calcium Car (Slow-Mag), 1 TAB PEG QAM Multivitamin (Multivitamin), 1 TAB PO QAM Sitagliptin (Januvia), 50 MG PO QAM - Take the following medications the morning of surgery with a sip of water: Omeprazole (Prilosec), 20 MG PO QAM Metoprolol Tartrate (Lopressor) (Lopressor), 25 MG PO BID Nitroglycerin (Nitrostat), 0.4 MG UT PRN (if needed) - Take the following medications as scheduled the night before surgery: Metoprolol Tartrate (Lopressor) (Lopressor), 25 MG PO BID Insulin Glargine (Lantus Solostar), 18 UNIT SC PM Nitroglycerin (Nitrostat), 0.4 MG UT PRN (if needed) If you have any questions please call us at [phone] or [phone] or [phone]
[2017-04-27 10:04] LABS: BASO % 0.8 %; BASO ABS # 0.03 K/uL (0-0.2); COMPLETE YES; EOS % 6.3 %; IG% 1.5 %; LYMPH % 41.6 %; LYMPH ABS # 1.66 K/uL (1.2-3.4); MEAN CELL VOLUME 95.5 fL (80-100); MEAN CORPUSCULAR HEMOGLOBIN 30.7 pg (25-34); MEAN CORPUSCULAR HGB CONC 32.2 g/dl (32-36); MEAN PLATELET VOLUME 10.1 fL (7.4-10.4); MONO % 14.8 %; PLATELET COUNT 181 K/uL (130-400); RED BLOOD COUNT 3.35 M/uL (4.7-6.1); WHITE BLOOD COUNT 3.99 K/uL (4.8-10.8)
[2017-04-27 10:13] LABS: PARTIAL THROMBOPLASTIN RATIO 0.9; PROTHROMBIN TIME (PATIENT) 10.2 SECONDS (9.0-12.0)
[2017-04-27 10:57] LABS: BUN/CREATININE RATIO 10.2 (10-20); CALCIUM 9.4 mg/dl (8.5-10.1); CREATININE 1.4 mg/dl (0.60-1.40); POTASSIUM 4.6 mmol/L (3.5-5.1)
[~2017-04-29] VITALS: Ht 177.8 cm; Wt 71.0 kg
[~2017-04-29 09:23] MED LIST changes: -ACET325T95 PO; -ALLO100T PO; -ATOR-26 PO; -DIPH-437 PO; -GABA-112 PO; -GADAVIST IV PRN; -MAGN400T6 PO; -MGCS/ PO; -NVLGI/PEN SC; +SODIUM CHLORIDE 0.9% 1000ML 1,000 ML IV SCH; -ZVR/400 PO; -prednisone PO
--- NOTE | 2017-04-29 09:56 | History and Physical ---
History & Physical Date Apr 29, 2017. Chief Complaint PET avid hilar nodule. History of B-cell lymphoma History of Present Illness The patient is a 76 year old male with complaints of PET avid hilar nodule: Patient here for evaluation of 10R PET positive hilar node: Patient is a 76-year-old male with a history of diffuse large B-cell lymphoma with MOLDER LABELS involvement. He has undergone treatment with rituximab, methotrexate intrathecal early, cytarabine earlier this year and recently has undergone 6 cycles of R-CHOP therapy. The patient has clinically responded as well as via PET scans but is most recent PET scan performed 03/06/2017 did show a PET avid region in the 10R hilar node. Due to this is oncologist Dr. meyer as send him for evaluation for possible EBUS. Today the patient notes continuing fatigue but currently denies: Fever, chills, pleurisy, productive cough or classic cardiac chest pain. 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 Chronic kidney disease stage 3 5. Coronary artery disease 6. Diabetes mellitus 7. Retroperitoneal bleed 8. History of tobacco use disorder 9. Hypomagnesemia 10. Right eye cataract Past surgical history 1. Status post angioplasty with stent/balloon dilation 2. Bone marrow aspiration 3. Colonoscopy 4. Cyst removal Medications 1. Januvia 2. Allopurinol 100 milligrams daily 3. Metoprolol 25 milligrams b.i.d. 4. Lantus 25 units 5. Prilosec 20 mg daily 6. NovoLog 7. Acyclovir 200 milligrams daily 8. Metformin 500 milligrams daily 9. Claritin 10 milligrams daily 10. Neurontin 20 milligrams q.h.s. Allergies 1. No Known Drug Allergies Past Medical/Surgical History Medical Problems: (1) CAD (coronary artery disease) (2) CKD (chronic kidney disease), stage III (3) MOLDER LABELS lymphoma (4) DM (diabetes mellitus screen) (5) Dyslipidemia (6) HTN (hypertension) (7) Pulmonary embolism (8) Retroperitoneal bleed Surgical Problems: (1) S/P IVC filter (2) S/P partial colectomy Additional History Hepatic Disease: No Endocrine Disorder: Yes (diabetes) Kidney Disease: Yes (stage III) Hypertension: No Heart Disease: Yes Bleeding Tendencies: No Infectious Diseases: No Allergies Coded Allergies: No Known Allergies (Verified , 04/27/17) Home Medications Scheduled Cholecalciferol (Vitamin D3), 1,000 UNIT PO QAM Insulin Glargine (Lantus Solostar), 18 UNIT SC PM Loratadine (Claritin), 10 MG PO prn Magnesium Chloride-Calcium Car (Slow-Mag), 1 TAB PEG QAM Metformin HCl (Metformin HCl), 500 MG PO QPM Metoprolol Tartrate (Lopressor) (Lopressor), 25 MG PO BID Multivitamin (Multivitamin), 1 TAB PO QAM Nitroglycerin (Nitrostat), 0.4 MG UT PRN Omeprazole (Prilosec), 20 MG PO QAM Sitagliptin (Januvia), 50 MG PO QAM Miscellaneous Medications Insulin Aspart 70/30 (Novolog Mix 70/30), 0 SC Physical Examination Skin: warm/dry, no rash Eyes: normal inspection, EOMI, sclerae normal ENT: normal ENT inspection, pharynx normal Head: normocephalic, atraumatic Neck: supple, no adenopathy, trachea midline Respiratory/Chest: lungs clear, normal breath sounds, no respiratory distress Cardiovascular: regular rate, rhythm, no edema, no murmur Abdomen / GI: normal bowel sounds, non tender Back: normal inspection Extremities: normal inspection, normal range of motion Neurologic/Psych: no motor/sensory deficits, alert, normal reflexes, oriented x 3 Diagnosis History of B-cell lymphoma with continued positive right hilar nodule ASA Classification: ASA Class III Plan of Treatment Patient is to undergo either this for evaluation of the PET positive hilar nodule
[2017-04-29 10:06] VITALS: BP 120/68; PULSE 56; TEMP 37; O2SAT 97; Ht 177.8 cm; Wt 71.0 kg
[2017-04-29 10:35] LABS: BASO % 0.7 %; BASO ABS # 0.03 K/uL (0-0.2); HEMATOCRIT 30.4 % (42-52); IG% 0.9 %; MEAN CELL VOLUME 94.7 fL (80-100); MEAN CORPUSCULAR HEMOGLOBIN 30.2 pg (25-34); MEAN PLATELET VOLUME 9.4 fL (7.4-10.4); MONO % 13.7 %; NEUT % 38.7 %; PLATELET COUNT 146 K/uL (130-400); RED BLOOD COUNT 3.21 M/uL (4.7-6.1); WHITE BLOOD COUNT 4.39 K/uL (4.8-10.8)
[2017-04-29 10:42] LABS: COMPLETE YES; MEAN CORPUSCULAR HGB CONC 31.9 g/dl (32-36)
[2017-04-29] MEDS ORDERED: FENTANYL CITRATE INJ 50 MCG/1 ML 2 ML VIAL IV PRN (11:00)
[2017-04-29] MEDS ORDERED: ATROPINE SULFATE 0.1 MG/ML 5ML SYR IV PRN (11:00)
[2017-04-29] MEDS ORDERED: EpHEDrine SULFATE INJ 50 MG/ML AMP IV PRN (11:00)
[2017-04-29] MEDS ORDERED: ONDANSETRON INJ 2 MG/ML 2 ML VIAL IV PRN (11:00)
[2017-04-29] MEDS ORDERED: PROPOFOL IV EMULSION 10 MG/ML 20 ML VIAL IV ONE ×2 (11:04→11:33)
[2017-04-29] MEDS ORDERED: LIDOCAINE HCL 2% 2 ML VIAL (20MG/ML) ONE (11:04)
[2017-04-29] MEDS ORDERED: DEXAMETHASONE SOD INJ 4 MG/ML VIAL ONE (11:04)
[2017-04-29] MEDS ORDERED: FENTANYL CITRATE INJ 50 MCG/1 ML 2 ML VIAL ONE (11:04)
[2017-04-29] MEDS ORDERED: ONDANSETRON INJ 2 MG/ML 2 ML VIAL ONE (11:04)
[2017-04-29] MEDS ORDERED: MIDAZOLAM HCL 1 MG/ML 2ML VIAL ONE (11:04)
--- NOTE | 2017-04-29 13:04 | Bronchoscopy Procedure Note ---
Bronchoscopy Procedure Note Procedure: Bronchoscopy, conscious sedation, Consent: Obtained through the patient placed into the chart Pre-procedural diagnosis: Positive hilar lymph node with history of B-cell lymphoma Post-procedural diagnosis: Positive hilar lymph node with history of B-cell lymphoma Sedation: Please refer to anesthesia's note Procedure: The Olympus video bronchoscope and EMS was used for this procedure and passed down through the LMA Vocal cords: anatomically within normal limits Subglottis/trachea/Shayla: Anatomically within normal limits Right bronchial tree: Right mainstem bronchus: Notable widening of the secondary shayla Right upper lobe: Anatomically within normal limits Bronchus intermedius: Anatomically within normal limits Right middle lobe: Anatomically within normal limits Right lower lobe: Anatomically within normal limits Findings: No significant findings noted Left bronchial tree: Left mainstem bronchus: Anatomically within normal limits Left upper lobe: Anatomically within normal limits Lingula: Anatomically within normal limits Left lower lobe: Anatomically within normal limits Findings: No significant findings noted Ana Luisa stations evaluated: 7, 10R, 11R, 12R, 4L, 10L, 11L, 2R, 2L Significant findings: 4L: 5.8mm 10R: 5.3mm Diffuse steep angle and was unable to approach either lymph node with the FNA. 7: 7.3mm 3 samples obtained lymph nodes noted 11R: 5.3mm one sample obtained only scattered lymph nodes noted Follow-up: Moved to PACU in meet criteria and discharge
[2017-04-29 13:25] VITALS: BP 116/62; PULSE 55; TEMP 36.4; O2SAT 98
[2017-04-29 13:52] VITALS: BP 97/52; PULSE 54; O2SAT 96
[2017-04-29 14:25] VITALS: BP 103/53; PULSE 56; TEMP 36.5; O2SAT 99
--- NOTE | 2017-04-29 15:19 | Discharge Instructions ---
Discharge Instructions Date of Service Apr 29, 2017. Admission Reason for Admission: Diffuse Large B-Cell Lymphoma; Mediastinal Lymphad Discharge Discharge Diagnosis / Problem: lymphadenopathy/PET positive with history of B- cell lymphoma Discharge Goals Goal(s): Diagnostic testing Activity Recommendations Activity Limitations: resume your previous activity . Instructions / Follow-Up Instructions / Follow-Up Follow-up in the [facility] pulmonary clinic in the next 1-2 weeks doing scheduled visit Current Hospital Diet Patient's current hospital diet: Discharge Diet Recommended Diet: Regular Diet Procedures Procedures Performed: Endobronchial Ultrasound Guided Biopsy, Flexible Bronchoscopy, Transtracheal-Transbronchial Needle Biopsy Pending Studies Studies pending at discharge: no Medical Emergencies . Who to Call and When: Medical Emergencies: If at any time you feel your situation is an emergency, please call 911 immediately. . Non-Emergent Contact Non-Emergency issues call your: [employer] . . "Provider Documentation" section prepared by Tyree Qureshi. . VTE Core Measure Inpt VTE Proph given/why not?: Treatment not indicated
--- NOTE | 2017-04-29 15:49 | Anesthesiology Progress Note ---
Anesthesia Post Op Note Date & Time Apr 29, 2017 at 14:00 Vital Signs Pain Intensity: 0 Vital Signs Past 12 Hours Date Time Temp Pulse Resp B/P (MAP) Pulse Ox O2 Delivery O2 Flow Rate FiO2 04/29/17 14:25 36.5 56 20 103/53 99 Room Air 04/29/17 13:52 54 20 97/52 96 Room Air 04/29/17 13:25 36.4 55 20 116/62 98 Room Air 04/29/17 13:20 36.0 53 16 101/65 98 Room Air 04/29/17 13:11 55 20 103/62 97 Room Air 04/29/17 13:01 53 20 100/61 100 Room Air 04/29/17 12:51 57 20 100/57 100 Oxymask 10 04/29/17 12:41 36.0 18 114/61 100 Oxymask 10 04/29/17 10:06 37.0 56 20 120/68 (85) 97 Room Air Notes Mental Status: alert / awake / arousable, participated in evaluation Pt Amnestic to Procedure: Yes Nausea / Vomiting: adequately controlled Pain: adequately controlled Airway Patency, RR, SpO2: stable & adequate BP & HR: stable & adequate Hydration State: stable & adequate Anesthetic Complications: no major complications apparent
[2017-05-19] MEDS ORDERED: NVLGI/PEN SC (10:21)
== END 2017-04-29 15:34 | disposition home or self-care (01) ==
LOC: C.ACU 09:23
PROVIDERS: ATTEND Internal Medicine Critical Care Medicine
DX: C83.30 Diffuse large B-cell lymphoma, unspecified site (principal); N18.3 Chronic kidney disease, stage 3 (moderate); I25.10 Atherosclerotic heart disease of native coronary artery without angina pectoris; E11.9 Type 2 diabetes mellitus without complications; I12.9 Hypertensive chronic kidney disease with stage 1 through stage 4 chronic kidney disease, or unspecified chronic kidney disease; E78.5 Hyperlipidemia, unspecified; Z79.899 Other long term (current) drug therapy; Z79.4 Long term (current) use of insulin; Z87.891 Personal history of nicotine dependence; Z79.84 Long term (current) use of oral hypoglycemic drugs

== ENCOUNTER → 2017-05-27 | Day surgery (SDC) | payer OTHER ==
[2017-05-19 10:21] VITALS: Ht 177.8 cm; Wt 70.9 kg
[~2017-05-27] VITALS: Ht 177.8 cm; Wt 70.9 kg
[~2017-05-27] MED LIST changes: +500ML BSS 0.3ML EPI 1:1000PF IRRIG ONE; +ACETAMINOPHEN 325 MG TAB PO PRN; +AMVISC PLUS 0.8ML SYRINGE INT OCU ONE; +ATROPINE SULFATE 0.1 MG/ML 5ML SYR IV PRN; +BSS FLUSH ONE; +ENDOCOAT 0.85ML SYRINGE INT OCU ONE; +EpHEDrine SULFATE INJ 50 MG/ML AMP IV PRN; +EpINEphrine INJ 1MG/ML AMP 1 MG/ML AMP ONE; +FENTANYL CITRATE INJ 50 MCG/1 ML 2 ML VIAL ONE; +LACTATED RINGER'S 1000ML 1,000 ML IV SCH; +LIDOCAINE 4% OP SOLN DROP CHARGE ONE; +LIDOCAINE 4% OP SOLN DROP CHARGE OPR SCH; +LIDOCAINE HCL 1% MPF 2 ML VIAL ONE; +MIDAZOLAM HCL 1 MG/ML 2ML VIAL ONE; +MIX: 4ML BSS 1ML EPI 1:1000 PF TOP ONE; +MOXIFLOXACIN OPH SOLN PER DROP CHARGE ONE; +NVLGI/PEN SC; -NVLGI7030 SC; +ONDANSETRON INJ 2 MG/ML 2 ML VIAL IV PRN; +POVIDONE-IODINE OP SOLN 30 ML BTL ONE; +PROPARACAINE 0.5% OP SOLN PER DROP CHARGE OPR SCH; -SODIUM CHLORIDE 0.9% 1000ML 1,000 ML IV SCH; +TOBRAMYCIN/DEXAMETHASONE OPH OINT PER APPLN CHARGE ONE
[2017-05-27] MEDS: PHENYLEPHRINE HCL 2.5% OP SOLN PER DROP CHARGE OPR SCH ×3 (07:27→07:37)
[2017-05-27] MEDS: TROPICAMIDE 1% OP SOLN PER DROP CHARGE OPR SCH ×3 (07:28→07:38)
[2017-05-27] MEDS: CYCLOPENTOLATE HCL 1% OP SOLN PER DROP CHARGE OPR SCH ×3 (07:29→07:39)
[2017-05-27] MEDS: MOXIFLOXACIN OPH SOLN PER DROP CHARGE OPR SCH ×3 (07:30→07:40)
--- NOTE | 2017-05-27 08:27 | [facility] Post Operative Brief Note ---
Immediate Operative Summary Operative Date May 27, 2017. Pre-Operative Diagnosis Cataract Right Eye Post-Operative Diagnosis Same Procedure(s) Performed Right Cataract Phacoemulsification With Intraocular Lens Implant Surgeon Dr. Trivedi Core Shaper Sides Surgeon(s) None Estimated Blood Loss 0 Findings right cataract Specimens None Complication(s) None Disposition
--- NOTE | 2017-05-27 08:28 | [facility] Operative Report ---
Operative Report Date of Service May 27, 2017. Operative Report DATE OF OPERATION: 05/27/17 PREOPERATIVE DIAGNOSIS: Senile nuclear cataract, right eye POSTOPERATIVE DIAGNOSIS: Senile nuclear cataract, right eye PROCEDURE PERFORMED: Phacoemulsification with intraocular lens implantation, right eye SURGEON: Dr. Romaine Trivedi ANESTHESIA: Topical with 1% intracameral lidocaine and monitored anesthesia care COMPLICATIONS: None DESCRIPTION OF PROCEDURE: After positively identifying the patient both verbally and by wristband in the preoperative area, the right eye was marked as the operative eye. The patient was then brought back to the operating room by the anesthesia and nursing staff where they were given a drop of Lidocaine and betadine into the operative eye. They were then sterilely prepped and draped in the standard fashion typical for ophthalmic surgery. Steri-strips were placed along the upper eyelids to keep the lashes back, and a lid speculum was placed into the operative eye. At this point, a documented time out was performed with members of the ophthalmology, nursing, and anesthesia staffs all agreeing upon the correct patient, correct location for surgery, correct procedure, and correct type and power of intraocular lens to be implanted. The microscope was then swung into position. First, a paracentesis wound was made using a sideport blade. Then, in sequence, 1% preservative-free lidocaine followed by Endocoat viscoelastic was injected into the anterior chamber. Next , the main incision was made with a keratome blade in triplanar fashion. A sharp cystotome was introduced into the eye and used to create a tear in the anterior capsule, which was directed into a continuous curvilinear capsulorrhexis using Utrata forceps. Hydrodissection was then performed with BSS on a flat-tip cannula. Next, the phacoemulsification handpiece was introduced into the eye and used to remove the nucleus in a [id number] fashion. This was done without complication and then the irrigation-aspiration handpiece was introduced into the eye and used to remove all remaining cortical and epinuclear material. Amvisc was then injected into the anterior chamber as well as into the capsular bag and using the lens injector system, an MX60 19.5 D lens, serial number [id number], and expiration date 02/2020 was injected into the capsular bag and rotated into the correct position. Next, the irrigation- aspiration handpiece was used to remove all remaining Amvisc. BSS was used to hydrate the main wound, and then BSS was injected into the paracentesis site to reach physiologic pressure and then the main wound was checked and found to be watertight. The patient was given drops of Vigamox and Tobradex ointment into the operative eye, and then the surrounding area was cleaned and dried. A clear plastic shield was placed over the eye and the patient was then sat up and taken from the operating room by the anesthesia staff having tolerated the procedure well and suffering no complications. DISPOSITION: The patient was returned to the recovery room in stable condition. I attest to the content of the Intraoperative Record and any orders documented therein. Any exceptions are noted below.
[2017-05-27 08:29] VITALS: TEMP 36.6
--- NOTE | 2017-05-27 08:29 | Discharge Instructions-SurgCtr ---
Discharge Instructions Date of Service May 27, 2017. Visit Reason for Visit: Cataract Right Eye Discharge Discharge Diagnosis / Problem: right cataract Discharge Goals Goal(s): Decrease discomfort, Improve function Medications Stopped Medications Name(s): metformin held on thursday Activity Recommendations Activity Limitations: as noted below Anesthesia . Post Anesthesia Instructions: If you have had General Anesthesia or IV Sedation: * Do not drive today. * Resume driving when surgeon permits. * Do not make important decisions or sign legal documents today. * Call surgeon for: 1. Temperature elevations greater than 101 degrees F. 2. Uncontrollable pain. 3. Excessive bleeding. 4. Persistent nausea and vomiting. 5. Medication intolerance (nausea, vomiting or rash). * For nausea and vomiting use only clear liquids such as: tea, soda, bouillon until nausea subsides, then gradually increase diet as tolerated. * If you have any concerns or questions, call your surgeon's office. If physician is unavailable and it is an emergency, call 911 or go to the nearest emergency room. . Instructions / Follow-Up Instructions / Follow-Up ACTIVITY RECOMMENDATIONS: * Light activities. * You may walk outside, read, watch television. * You may notice redness on the white part of the eye and some blurry vision - this is normal. MEDICATIONS: Resume previous medications unless instructed otherwise by your surgeon. Start all eye drops at 10:30 am today: * Eye drops (today): Prednisone - one drop in operative eye every 2 hours while awake Ofloxacin- one drop in operative eye every 2 hours while awake Bromfenac - one drop in operative eye daily SPECIAL CARE INSTRUCTIONS: * Tape plastic shield over eye to sleep at night. Call your doctor at with any concerns or problems. FOLLOW UP VISIT: Follow-up with Dr Trivedi at [place] office as scheduled. Diet Recommendations Home Diet: no limitations Procedures Procedures Performed: Right Cataract Phacoemulsification With Intraocular Lens Implant Pending Studies Studies pending at discharge: no Medical Emergencies . Who to Call and When: Medical Emergencies: If at any time you feel your situation is an emergency, please call 911 immediately. . Non-Emergent Contact Non-Emergency issues call your: Surgeon . . "Provider Documentation" section prepared by Romaine Trivedi. .
--- NOTE | 2017-05-27 08:45 | Anesthesiology Progress Note ---
Anesthesia Post Op Note Date & Time May 27, 2017 at 08:44 Vital Signs Pain Intensity: 0 Vital Signs Past 12 Hours Date Time Temp Pulse Resp B/P (MAP) Pulse Ox O2 Delivery O2 Flow Rate FiO2 05/27/17 08:29 36.6 53 16 112/66 (81) 98 Room Air 05/27/17 07:18 36.7 56 22 145/83 (103) 98 Room Air Notes Mental Status: alert / awake / arousable, participated in evaluation Pt Amnestic to Procedure: Yes Nausea / Vomiting: adequately controlled Pain: adequately controlled Airway Patency, RR, SpO2: stable & adequate BP & HR: stable & adequate Hydration State: stable & adequate Anesthetic Complications: no major complications apparent
[2017-05-27 08:55] VITALS: BP 125/77; PULSE 56; O2SAT 96
== END | disposition home or self-care (01) ==
LOC: X.SURG 07:03
PROVIDERS: ATTEND Ophthalmology
DX: H25.11 Age-related nuclear cataract, right eye (principal); E11.36 Type 2 diabetes mellitus with diabetic cataract; I10 Essential (primary) hypertension; I25.10 Atherosclerotic heart disease of native coronary artery without angina pectoris; E78.00 Pure hypercholesterolemia, unspecified; Z95.5 Presence of coronary angioplasty implant and graft; Z79.899 Other long term (current) drug therapy